=== PATIENT | male | born 1960 | race Caucasian/White ===

== ENCOUNTER 2021-06-03 11:02 | Outpatient (CLI) | payer MEDICARE, SELFPAY ==
[2021-06-03 12:17] LABS: SARS-CoV-2 Ag Positive (Negative)
== END 2021-06-03 11:03 | disposition home or self-care (01) ==
LOC: CHSLAB 11:08
PROVIDERS: PCP Physician Assistant; Visit Provider Physician Assistant
DX: U07.1 COVID-19 (principal); R68.89 Other general symptoms and signs
CPT/HCPCS: 87426; C9803

== ENCOUNTER 2021-06-12 07:19 | Inpatient (IN) | payer MEDICARE, SELFPAY ==
[2021-06-12] VITALS (16 sets, daily range): BP systolic 113–246; BP diastolic 76–220; PULSE 95–172; RESP 22–28; TEMP 36.3–37.5; O2SAT 91–99; BMI 33.1
--- NOTE | ~2021-06-12 | NM_ITS ---
EXAMINATION: NM pulmonary perfusion DATE: 06/13/2021 14:15 INDICATION: Dyspnea with elevated d-dimer. TECHNIQUE: 5.4 mCi Tc-99m MAA by intravenous route. Scintigraphic images of the chest were obtained. COMPARISON: Chest radiograph dated 06/13/2021 FINDINGS: There are a few small perfusion defects along the left lung base with corresponding airspace opacitie s on the prior radiographs. Single subtle moderate-sized perfusion defect at the superior segment of the right lower lobe best appreciated on the LPO projection without evident corresponding radiographi c opacity.. IMPRESSION: 1. Nondiagnostic (low or intermediate) probability for pulmonary embolism. Reviewed, dictated and finalized at location A. HARDENER
--- NOTE | ~2021-06-12 | XR_ITS ---
XR chest 1V portable 06/12/2021 07:46 Indication: Dyspnea. Covid pneumonia. Procedure: AP portable chest Comparison: No prior studies for comparison. Findings: Heart size upper normal. Patchy bilateral airspace disease, consistent with pneumonia. No s ignificant effusion. No acute osseous abnormality. 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 Impression: 1: Patchy bilateral airspace disease of the mid and lower lungs, consistent with pneumonia. Reviewed, dictated and finalized at location A. S PULLER Impression: 1: Patchy bilateral airspace disease of the mid and lower lungs, consistent wit h pneumonia.
--- NOTE | ~2021-06-12 | XR_ITS ---
EXAMINATION: XR chest 1V portable EXAM DATE: 06/13/2021 08:22 INDICATION: covid, difficulty breathing, shakes, cough . TECHNIQUE: Portable AP frontal chest x-ray was obtained. Comparison is made to prior examination from 06/12/2021. FINDINGS: There is cardiomegaly and pulmonary vascular congestion. Moderate amount of bilateral lower lung zone predominant airspace disease, edema and/or pneumonia. No pneumothorax. Possible small pleu ral effusions. There are bony degenerative changes. IMPRESSION: 1. Bibasilar pneumonia and/or edema with mild improvement on the right. Reviewed, dictated and finalized at location G. [facility]
--- NOTE | ~2021-06-12 | XR_ITS ---
XR chest 1V portable DATE: 06/14/2021 07:35 INDICATION: Shortness of breath. Covid. TECHNIQUE: Portable AP chest on 06/14/2021 at 0722 hours COMPARISON: Portable AP chest on 06/13/2021 at 0814 hours FINDINGS: There are persistent bilateral lower lung infiltrates and/or atelectasis; little interval c hange since 06/13/2021. The lungs appear hyperinflated suggesting possible COPD. No pleural effusion or pulmonary vascular congestion or pneumothorax is evident. Diffuse osteopenia. Osteoarthritic change at the glenohumeral joints. IMPRESSION: Persistent bilateral lower lung infiltrate and/or atelectasis, relatively stable since Reviewed, dictated and finalized at location A. ARCH TECH IMPRESSION: Persistent bilateral lower lung infiltrate and/or atelectasis, rela tively stable since 06/13/2021
--- NOTE | 2021-06-12 07:30 | ECG_ITS ---
Measurements Intervals [place] Rate: 153 P: NC: 0 QRS: -29 QRSD: 89 T: 91 QT: 303 QTc: 484 Interpretive Statements ATRIAL FIBRILLATION WITH RAPID VENTRICULAR RESPONSE VENTRICULAR PREMATURE COMPLEXES BASELINE WANDER- I, II, III, AVR, AVL, AVF, V1, V3, V5-V6 ABNORMAL ECG Electronically Signed On 06-12-2021 13:52:39 TOBACCO CURER by Thad Nieves D.O.
[2021-06-12] MEDS: dilTIAZem HCl INJ 25 MG/5 ML VIAL IV PUSH (07:32)
[2021-06-12] MEDS: dilTIAZem 100 MG/100 ML 100 MG/100 ML BAG 15 MG IV CONT (07:42)
--- NOTE | 2021-06-12 07:43 | ED.SOB ---
HPI - SOB/Dyspnea General Chief Complaint: Shortness of Breath/Dyspnea Stated Complaint: ambulance Time Seen by Provider: 06/12/21 07:23 Source: patient, EMS and RN notes reviewed Mode of arrival: ambulatory Limitations: clinical condition History of Present Illness MD elicited complaint: shortness of breath Pertinent past history: COPD and congestive heart failure Onset (ago): week(s) (1) Context: recent illness Timing: constant Severity: severe Exacerbating factors: lying flat, exertion and movement Relieving factors: nothing Known history of: COPD, congestive heart failure and other (told me COVID 1 month ago but actually only 9 days ago) Associated symptoms: fever and palpitations Treatment prior to arrival: oxygen Related Data Home Medications Medication Instructions Recorded Confirmed albuterol sulfate 2 puff INHALATION QID PRN 06/12/21 06/12/21 atorvastatin 40 mg PO DAILY 06/12/21 06/12/21 diltiazem HCl 180 mg PO DAILY 06/12/21 06/12/21 gabapentin 300 mg PO TID 06/12/21 06/12/21 losartan 50 mg PO DAILY 06/12/21 06/12/21 magnesium oxide 400 mg PO DAILY 06/12/21 06/12/21 metformin 500 mg PO BID 06/12/21 06/12/21 metoprolol tartrate 50 mg PO DAILY 06/12/21 06/12/21 nitroglycerin 0.4 mg SUBLINGUAL PRN PRN 06/12/21 06/12/21 oseltamivir 75 mg PO DAILY 06/12/21 06/12/21 potassium chloride 10 meq PO DAILY 06/12/21 06/12/21 rivaroxaban [Xarelto] 20 mg PO DAILY 06/12/21 06/12/21 tramadol 50 mg PO TID PRN 06/12/21 06/12/21 Allergies Allergy/AdvReac Type Severity Reaction Status Date / Time No Known Allergies Allergy Verified 06/12/21 07:53 Review of Systems Review of Systems: All systems reviewed & are unremarkable except as noted in HPI and below Constitutional: Constitutional: Reports fever(s) Cardiovascular: Cardiovascular: Reports as per HPI and Reports chest pain (gone now) Respiratory: Respiratory: Reports as per HPI Gastrointestinal: Gastrointestinal: Reports diarrhea and Reports vomiting PMFSH Past Medical History Medical History (Updated 06/12/21 @ 11:22 by Juan José Sal MD) Afib CHF (congestive heart failure) COPD (chronic obstructive pulmonary disease) History of COVID-19 History of obstruction of large intestine Hyperlipidemia Type 2 diabetes mellitus Surgical History Surgical History (Updated 06/12/21 @ 09:00 by Juan José Sal MD) History of colon surgery History of inguinal hernia repair Social History Social History (Updated 06/12/21 @ 07:54 by Juan José Sal MD) Smoking packs per day: 1 Smoking cigarettes per day: 20.0 Smoking status: Current every day smoker Tobacco type: cigarettes Exam Const: General: ill appearing acutely HENMT: Head: normal to inspection Ears: external ears normal General nose exam: Normal external nose present Face and sinus: normal facial exam Mouth: Yes moist mucous membranes Eyes: Conjunctivae: conjunctivae normal Pupils: Equal, round and reactive pupils present EOM: EOMs intact bilaterally Neck: Neck: normal visual inspection Resp: Effort & Inspection: labored and tachypneic Auscultation: rhonchi throughout Cardio: Rate: tachycardic Rhythm: abnormal rhythm irregularly irregular GI: GI Palp: Yes Soft to palpation and Yes Tenderness to palpation present (GI) Auscultation: normal bowel sounds Back/Spine/Pelvis: Cervical Spine: cervical ROM normal Thoracic/Lumbar Spine: thoraco-lumbar ROM normal Skin: General skin exam: normal color Rashes: no rashes Neuro: General: patient oriented x3, moves all extremities, no meningeal signs, no focal motor deficits and CN's II-XI intact bilaterally Speech: normal speech Extrem: General: normal to inspection and edema bilateral (1+) Psych: Mental Status: mental status grossly normal Affect: Anxious affect present Attitude: cooperative Thought content: Yes Normal thought content present Course Course Emergency Course: patient presented with atrial fibrillation with RVR to moises reyes
[2021-06-12 07:46] LABS: Basophils Absolute Auto 0.02 K/mm3 (0.00-0.10); Basophils Percent Auto 0.2 % (0.0-1.0); Eosinophils Absolute Auto 0.01 K/mm3 (0.02-0.50); Eosinophils Percent Auto 0.1 % (1.0-6.0); Hematocrit 38.9 % (40.0-54.0); Hemoglobin 13.9 g/dL (14.0-18.0); Immature Granulocyte Absolute 0.11 K/mm3 (0.00-0.00); Immature Granulocyte Percent A 0.8 % (0.0-0.0); Lymphocytes Percent Auto 4.6 % (18.0-42.0); Mean Corpuscular HGB Conc 35.7 g/dL (32.0-36.0); Mean Corpuscular Volume 89.6 fL (78.0-102.0); Mean Platelet Volume 11.8 fl (8.7-11.0); Monocytes Absolute Auto 1.11 K/mm3 (0.10-0.90); Monocytes Percent Auto 8.5 % (2.0-11.0); Neutrophils Absolute Auto 11.2 K/mm3 (1.7-7.2); Neutrophils Percent Auto 85.8 % (50.0-70.0); Nucleated Red Blood Cells Absolute Auto 0.02 K/mm3 (0.00-0.00); Nucleated Red Blood Cells Perc 0.2 % (0-0.0); Platelet Count Result 246 K/mm3 (150-420); Red Blood Count 4.34 M/mm3 (4.70-6.10); Red Cell Distribution Width 12.7 % (11.6-14.4)
[2021-06-12] MEDS: dilTIAZem HCl INJ 25 MG/5 ML VIAL 30 MG IV PUSH (07:54)
[2021-06-12 08:02] LABS: INR 1.1
[2021-06-12 08:05] LABS: D Dimer 2.82 mg/L (0.19-0.50)
[2021-06-12 08:07] LABS: Alanine Aminotransferase 38 U/L (16-63); Albumin Level 2.6 g/dL (3.4-5.0); Alkaline Phosphatase 95 U/L (46-116); Anion Gap 16 mmol/L (8-16); Aspartate Amino Transferase 59 U/L (15-37); Blood Urea Nitrogen 39 mg/dL (7-18); Calcium 8.9 mg/dL (8.5-10.1); Carbon Dioxide 23 mmol/L (21-32); Chloride 92 mmol/L (98-108); Estimated CRCL calculation 39 ml/min; Estimated Glomerular Filt Rate 25; Glucose 385 mg/dL (70-99); Magnesium 1.8 mg/dL (1.8-2.4); NT Pro B Type Natriuretic Pept 413 pg/mL (0-125); Osmolality Calculated 297 mOsm/kg (285-295); Potassium 3.1 mmol/L (3.5-5.1); Sodium 131 mmol/L (136-145)
[2021-06-12 08:08] LABS: Troponin I 74.7 ng/L (0.00-60.4)
[2021-06-12] MEDS: FUROSEMIDE INJ 40 MG/4 ML VIAL 60 MG IV PUSH (08:12)
[2021-06-12] MEDS: hydrALAZINE HCL 20 MG/ML VIAL IV PUSH (08:18)
--- NOTE | 2021-06-12 08:28 | PC.NURSE ---
Pt turned down to 10L non-rebreather per Dr. Sal.
[2021-06-12 08:30] LABS: SARS-CoV-2 RNA PCR Positive (Negative)
--- NOTE | 2021-06-12 08:41 | PC.NURSE ---
Pt noted to have de-sated into the mid 80's. Pt turned up to 15L by non-rebreather and saturation improved to 94%.
[2021-06-12] MEDS: KCL 20 MEQ/SW 100 ML 100 ML 50 MEQ IVPB (08:53)
[2021-06-12] MEDS: SODIUM CHLORIDE 0.9% IV 1,000 ML 150 ML IV CONT (08:53)
--- NOTE | 2021-06-12 09:15 | PC.NURSE ---
Lab at bedside drawing ABG.
[2021-06-12 09:21] LABS: Base Excess ABG -0.1 mmol/L (0-2); HCO3 ABG 22.7 mmol/L (23-29); Oxygen Content ABG 19.2 %vol (16.0-22.0); Oxygen Saturation ABG 97.9 % (95-97); Oxyhemoglobin 97.5 % (94-100); PCO2 ABG 31.8 mmHg (35-45); PO2 ABG 109.1 mmHg (80-90); Total Hemoglobin 13.9 g/dL (12.0-18.0); pH ABG 7.47 (7.35-7.45)
[2021-06-12 09:23] LABS: Device NON-REBREATHER MASK; Modified Allen's Test Pass; Site Drawn RIGHT RADIAL
[2021-06-12 09:30] LABS: Add Urine Microscopic? YES; Appearance Urine Clear (Clear); Bilirubin Urine Negative (Negative); Blood Urine 2+ (Negative); Color Urine Yellow (Yellow); Glucose Urine UA 1+ (Negative); Ketones Urine Negative (Negative); Leukocyte Esterase Ur Negative LEU/UL (Negative); Nitrate Urine Negative (Negative); Protein Urine 2+ (Negative); Specific Grav Ur >= 1.030 (1.010-1.020); Urobilinogen Urine 0.2 mg/dL (0.2-1.0); pH Urine 5.5 (5.0-8.0)
[2021-06-12 09:37] LABS: Amphetamine Screen Urine Negative (Negative); Barbiturate Screen Urine Negative (Negative); Benzodiazepines Screen Urine Negative (Negative); Cannabinoid Screen Urine Negative (Negative); Cocaine Screen Urine Negative (Negative); Methadone Screen Urine Negative (Negative); Opiate Screen Urine Negative (Negative); Phencyclidine Screen Urine Negative (Negative)
[2021-06-12 09:45] LABS: Bacteria Urine 2+ /hpf; RBC Urine 21-50 /hpf (0-2); Squamous Epithelial Cell Urine None seen /hpf (Few); WBC Urine 0-3 /hpf (0-3)
--- NOTE | 2021-06-12 11:33 | PC.NURSE ---
Phone report given to JOHN Gilbert
--- NOTE | 2021-06-12 11:34 | PC.NURSE ---
Admitting notified of admission.
--- NOTE | 2021-06-12 11:43 | PC.NURSE ---
Face sheet faxed to [facility].
--- NOTE | 2021-06-12 12:05 | ADMGEN ---
This patient, Stoney Mayorga, was admitted to 2nd Floor Room 211-1 for COVID pneumonia. Patient/family oriented to hospital policies and general routines including ID bracelet, bed and alarms, visiting hours, pain management, procedures, bathroom and other care routines, personal items, smoking policy, room service/diet, and visiting hours. Information on how to activate the Rapid Response Team has been discussed. Patient/Family are encouraged to report perceived risks to care and to ask questions if they do not understand what they are told or what they should do.
[2021-06-12] MEDS: dilTIAZem 100 MG/100 ML 100 MG/100 ML BAG IV CONT (14:10)
[2021-06-12] MEDS: dilTIAZem HCL CD 180 MG CAP.ER.24H PO (16:24)
[2021-06-12] MEDS: BENZONATATE 100 MG CAPSULE 200 MG PO (16:24)
[2021-06-12] MEDS: RIVAROXABAN 10 MG TABLET 20 MG PO (16:24)
[2021-06-12] MEDS: HYDROcodone/acetaminophen (*CRX) 7.5-325 MG TABLET 1 TAB PO (16:24)
[2021-06-12] MEDS: BARICITINIB 2 MG TABLET 1 MG PO (16:24)
[2021-06-12] MEDS: LORATADINE 10 MG TABLET PO (16:24)
[2021-06-12] MEDS: GABAPENTIN 300 MG CAPSULE PO (16:25)
[2021-06-12] MEDS: BUDESONIDE/FORMOTEROL (*SP) 160-4.5 MCG 6 GM INH 2 PUFF INHALATION (18:03)
[2021-06-12] MEDS: DEXAMETHASONE SOD PHOS INJ 4 MG/ML VIAL IV PUSH (18:03)
[2021-06-12 20:24] LABS: NT Pro B Type Natriuretic Pept 493 pg/mL (0-125)
[2021-06-12] MEDS: guaiFENesin 12 HR 600 MG TABCR 1200 MG PO (21:37)
[2021-06-12] MEDS: SODIUM CHLORIDE 0.9% IV 1,000 ML 75 ML IV CONT (23:55)
[2021-06-13] VITALS (12 sets, daily range): BP systolic 122–175; BP diastolic 70–90; PULSE 84–123; RESP 20–22; TEMP 36–37.7; O2SAT 88–98
[2021-06-13] MEDS: DEXAMETHASONE SOD PHOS INJ 4 MG/ML VIAL IV PUSH ×4 (00:50→22:39)
[2021-06-13] MEDS: BUDESONIDE/FORMOTEROL (*SP) 160-4.5 MCG 6 GM INH 2 PUFF INHALATION ×2 (06:16→19:15)
[2021-06-13 06:30] LABS: Basophils Absolute Auto 0.01 K/mm3 (0.00-0.10); Basophils Percent Auto 0.1 % (0.0-1.0); Hematocrit 35.9 % (40.0-54.0); Hemoglobin 12.2 g/dL (14.0-18.0); Immature Granulocyte Absolute 0.08 K/mm3 (0.00-0.00); Immature Granulocyte Percent A 0.8 % (0.0-0.0); Lymphocytes Percent Auto 6.6 % (18.0-42.0); Mean Corpuscular Hemoglobin 31.9 pg (27.0-31.0); Mean Platelet Volume 11.6 fl (8.7-11.0); Monocytes Absolute Auto 0.45 K/mm3 (0.10-0.90); Monocytes Percent Auto 4.2 % (2.0-11.0); Neutrophils Absolute Auto 9.4 K/mm3 (1.7-7.2); Neutrophils Percent Auto 88.3 % (50.0-70.0); Platelet Count Result 275 K/mm3 (150-420); Red Blood Count 3.82 M/mm3 (4.70-6.10); Red Cell Distribution Width 12.8 % (11.6-14.4); White Blood Count 10.7 K/mm3 (4.8-10.8)
[2021-06-13 06:43] LABS: Base Excess ABG -0.3 mmol/L (0-2); HCO3 ABG 23.4 mmol/L (23-29); Oxygen Content ABG 13.6 %vol (16.0-22.0); Oxyhemoglobin 91.6 % (94-100); PCO2 ABG 34.6 mmHg (35-45); PO2 ABG 63.2 mmHg (80-90); Total Hemoglobin 10.5 g/dL (12.0-18.0); pH ABG 7.45 (7.35-7.45)
[2021-06-13 06:54] LABS: Alanine Aminotransferase 36 U/L (16-63); Estimated CRCL calculation 43 ml/min; Estimated Glomerular Filt Rate 29
[2021-06-13 06:56] LABS: INR 1.2; Prothrombin Time 12.8 Seconds (9.50-12.10)
[2021-06-13 07:03] LABS: Device NASAL CANNULA; Modified Allen's Test Pass; Site Drawn RIGHT RADIAL
[2021-06-13 07:45] LABS: NT Pro B Type Natriuretic Pept 687 pg/mL (0-125)
[2021-06-13 07:49] LABS: Aspartate Amino Transferase 44 U/L (15-37)
[2021-06-13] MEDS: POTASSIUM CHLORIDE 10 MEQ TABLET PO (09:00)
[2021-06-13 09:46] LABS: Alanine Aminotransferase 37 U/L (16-63); Albumin Level 2.3 g/dL (3.4-5.0); Alkaline Phosphatase 85 U/L (46-116); Anion Gap 15 mmol/L (8-16); Aspartate Amino Transferase 44 U/L (15-37); Bilirubin,Total 0.5 mg/dL (0.00-1.00); Blood Urea Nitrogen 53 mg/dL (7-18); Calcium 8.5 mg/dL (8.5-10.1); Carbon Dioxide 23 mmol/L (21-32); Chloride 96 mmol/L (98-108); Estimated CRCL calculation 43 ml/min; Estimated Glomerular Filt Rate 30; Osmolality Calculated 312 mOsm/kg (285-295); Potassium 3.7 mmol/L (3.5-5.1); Sodium 134 mmol/L (136-145); Total Protein 6.3 g/dL (6.4-8.2)
[2021-06-13 09:51] LABS: Glucose 466 mg/dL (70-99)
[2021-06-13 09:52] LABS: Troponin I 68.5 ng/L (0.00-60.4)
[2021-06-13] MEDS: dilTIAZem HCl INJ 25 MG/5 ML VIAL IV PUSH (10:32)
[2021-06-13] MEDS: METOPROLOL TARTRATE 50 MG TAB PO (10:34)
[2021-06-13] MEDS: LORATADINE 10 MG TABLET PO (10:34)
[2021-06-13] MEDS: BENZONATATE 100 MG CAPSULE 200 MG PO ×3 (10:35→17:46)
[2021-06-13] MEDS: guaiFENesin 12 HR 600 MG TABCR 1200 MG PO ×2 (10:35→21:54)
[2021-06-13] MEDS: ATORVASTATIN 40 MG TABLET PO (10:35)
[2021-06-13] MEDS: dilTIAZem HCL CD 180 MG CAP.ER.24H PO (10:36)
[2021-06-13] MEDS: GABAPENTIN 300 MG CAPSULE PO ×3 (10:36→17:11)
[2021-06-13] MEDS: MAGNESIUM OXIDE 400 MG TABLET PO (10:36)
[2021-06-13] MEDS: LOSARTAN POTASSIUM 50 MG TABLET PO (10:37)
[2021-06-13] MEDS: BARICITINIB 2 MG TABLET PO (11:00)
[2021-06-13] MEDS: dilTIAZem 100 MG/100 ML 100 MG/100 ML BAG 15 MG IV CONT (14:35)
--- NOTE | 2021-06-13 16:06 | PM.IMHP ---
H&P: HPI History of Present Illness Date/Time: 06/13/21 16:06 this is a 61-year-old male that presented to emergency department with complaints of palpitations and shortness of breath. Patient has a past medical history of A. fib, heart failure, COPD, COVID, hyperlipidemia and type 2 diabetes. According to patient a couple days ago he started to experience shortness of breath he was diagnosed with COVID 9 days ago. He did not do anything to relieve the symptoms at home. Patient notified 97.3 heart rate has been between 80 and 123, 145/70, respiratory rate 22 patient currently on 5 L nasal cannula satting 94, WBC 13.0, hemoglobin 13.9, hematocrit 38.9, platelets 246, D-dimer 2.82 ABG pH 7.47, CO2 31.8. O2 109.1 bicarb 22.7, sodium 131, potassium 3.1, creatinine 2.61, BUN 39 glucose 385, magnesium 1.8 AST 59 ALT 38 alkaline phosphate 95 troponin 74.7, BNP 413, COVID-positive chest x-ray indicates pneumonia versus edema EKG A. fib with RVR with heart rate of 153. While in the ED patient received Cardizem and hydralazine 10 mg for her high blood pressure. Patient is being admitted for A. fib with RVR, covid, elevated troponin and jordin.. Chief Complaint: Shortness of breath and palpitation Review of Systems Review of Systems: A 14 organ system Review of Systems was performed and pertinent positives included in the HPI, otherwise remaining ROS is negative. [facility] Past Medical History Medical History (Updated 06/13/21 @ 16:31 by NICKI Brewer) Afib CHF (congestive heart failure) COPD (chronic obstructive pulmonary disease) History of COVID-19 History of obstruction of large intestine Hyperlipidemia Type 2 diabetes mellitus Surgical History Surgical History (Updated 06/12/21 @ 09:00 by Juan José Sal MD) History of colon surgery History of inguinal hernia repair Social History Social History (Updated 06/12/21 @ 07:54 by Juan José Sal MD) Smoking packs per day: 1 Smoking cigarettes per day: 20.0 Smoking status: Current every day smoker Tobacco type: cigarettes Alcohol intake: never Substance use: never Substance use type: does not use Spiritual care concerns: No Meds Home Medications and Allergies Home Medications Medication Instructions Recorded Confirmed Type albuterol sulfate 2 puff INHALATION QID PRN 06/12/21 06/12/21 History atorvastatin 40 mg PO DAILY 06/12/21 06/12/21 History diltiazem HCl 180 mg PO DAILY 06/12/21 06/12/21 History gabapentin 300 mg PO TID 06/12/21 06/12/21 History losartan 50 mg PO DAILY 06/12/21 06/12/21 History magnesium oxide 400 mg PO DAILY 06/12/21 06/12/21 History metformin 500 mg PO BID 06/12/21 06/12/21 History metoprolol tartrate 50 mg PO DAILY 06/12/21 06/12/21 History nitroglycerin 0.4 mg SUBLINGUAL PRN PRN 06/12/21 06/12/21 History oseltamivir 75 mg PO DAILY 06/12/21 06/12/21 History potassium chloride 10 meq PO DAILY 06/12/21 06/12/21 History rivaroxaban [Xarelto] 20 mg PO DAILY 06/12/21 06/12/21 History tramadol 50 mg PO TID PRN 06/12/21 06/12/21 History Allergies Allergy/AdvReac Type Severity Reaction Status Date / Time No Known Allergies Allergy Verified 06/12/21 07:53 Vital Signs Vital Signs - 24 hr 06/12/21 20:00 06/13/21 00:00 06/13/21 01:10 Temperature 97.3 F L Pulse Rate 100 100 84 Respiratory Rate 22 H 22 H Blood Pressure 122/74 132/77 Pulse Oximetry 94 94 06/13/21 04:00 06/13/21 10:34 06/13/21 14:35 Temperature Pulse Rate 84 123 H 98 Respiratory Rate Blood Pressure 145/70 H Pulse Oximetry Exam Narrative: GENERAL: M, in no apparent distress. HEAD: normocephalic, atraumatic. EYES: PERRL. Sclera clear/white. Vision is grossly intact. EARS: External ears normal, auditory canals clear and without drainage, TMs normal without perforation. Hearing grossly intact. NOSE: External nose normal with no obvious nasal discharge, nares without redness, no rhinorrhea. THROAT: Mucous membranes moist, posterior ph
[2021-06-13] MEDS: RIVAROXABAN 10 MG TABLET 20 MG PO (17:11)
[2021-06-13] MEDS: MAGNESIUM SULF 2 GM/WATER 50ML 2 GM/50 ML BAG IVPB (18:10)
[2021-06-13 19:44] LABS: Troponin I 99.4 ng/L (0.00-60.4)
--- NOTE | 2021-06-13 19:47 | PC.NURSE ---
notified of current Troponin level of 99.4.No new orders at this time.
[2021-06-13] MEDS: traZODone HCL 50 MG TABLET PO (21:54)
[2021-06-13 22:56] LABS: Glucose Point of Care 376 mg/dl (65-105)
[2021-06-14] VITALS (14 sets, daily range): BP systolic 127–168; BP diastolic 65–94; PULSE 83–128; RESP 22–24; TEMP 36.6; O2SAT 90–99
[2021-06-14] MEDS: DEXAMETHASONE SOD PHOS INJ 4 MG/ML VIAL IV PUSH ×3 (00:13→11:15)
[2021-06-14] MEDS: dilTIAZem 100 MG/100 ML 100 MG/100 ML BAG 15 MG IV CONT ×2 (01:17→08:56)
--- NOTE | 2021-06-14 01:17 | PC.NURSE ---
Spoke with Dr. Steward to confirm parameters for cardizem gtt. Told to continue drio at current rate at this time.
[2021-06-14] MEDS: BUDESONIDE/FORMOTEROL (*SP) 160-4.5 MCG 6 GM INH 2 PUFF INHALATION ×2 (05:47→17:38)
[2021-06-14 06:04] LABS: Basophils Absolute Auto 0.03 K/mm3 (0.00-0.10); Basophils Percent Auto 0.2 % (0.0-1.0); Hematocrit 37.4 % (40.0-54.0); Hemoglobin 12.5 g/dL (14.0-18.0); Immature Granulocyte Percent A 1.6 % (0.0-0.0); Lymphocytes Absolute Auto 0.52 K/mm3 (1.10-4.50); Lymphocytes Percent Auto 2.8 % (18.0-42.0); Mean Corpuscular HGB Conc 33.4 g/dL (32.0-36.0); Mean Corpuscular Hemoglobin 30.9 pg (27.0-31.0); Mean Corpuscular Volume 92.6 fL (78.0-102.0); Mean Platelet Volume 11.2 fl (8.7-11.0); Monocytes Absolute Auto 0.89 K/mm3 (0.10-0.90); Monocytes Percent Auto 4.8 % (2.0-11.0); Neutrophils Absolute Auto 16.7 K/mm3 (1.7-7.2); Neutrophils Percent Auto 90.6 % (50.0-70.0); Platelet Count Result 395 K/mm3 (150-420); Red Blood Count 4.04 M/mm3 (4.70-6.10); Red Cell Distribution Width 12.8 % (11.6-14.4); White Blood Count 18.4 K/mm3 (4.8-10.8)
[2021-06-14 06:19] LABS: INR 1.2; Prothrombin Time 12.5 Seconds (9.50-12.10)
[2021-06-14 06:22] LABS: Base Excess ABG -0.8 mmol/L (0-2); HCO3 ABG 21.2 mmol/L (23-29); Oxygen Content ABG 17.8 %vol (16.0-22.0); Oxygen Saturation ABG 98.6 % (95-97); Oxyhemoglobin 96.7 % (94-100); PCO2 ABG 27.8 mmHg (35-45); PO2 ABG 162.6 mmHg (80-90); Total Hemoglobin 12.9 g/dL (12.0-18.0)
[2021-06-14 06:33] LABS: Device NASAL CANNULA; Modified Allen's Test Pass; Site Drawn RIGHT RADIAL
[2021-06-14 06:41] LABS: Alanine Aminotransferase 45 U/L (16-63); Albumin Level 2.2 g/dL (3.4-5.0); Alkaline Phosphatase 92 U/L (46-116); Anion Gap 17 mmol/L (8-16); Aspartate Amino Transferase 57 U/L (15-37); Bilirubin,Total 0.6 mg/dL (0.00-1.00); Blood Urea Nitrogen 49 mg/dL (7-18); Calcium 8.9 mg/dL (8.5-10.1); Carbon Dioxide 22 mmol/L (21-32); Chloride 94 mmol/L (98-108); Estimated CRCL calculation 53 ml/min; Estimated Glomerular Filt Rate 38; Magnesium 2.6 mg/dL (1.8-2.4); NT Pro B Type Natriuretic Pept 1666 pg/mL (0-125); Osmolality Calculated 308 mOsm/kg (285-295); Potassium 3.5 mmol/L (3.5-5.1); Sodium 133 mmol/L (136-145); Total Protein 7.4 g/dL (6.4-8.2)
[2021-06-14 06:42] LABS: Glucose 436 mg/dL (70-99)
[2021-06-14 08:16] LABS: Glucose Point of Care 420 mg/dl (65-105)
[2021-06-14] MEDS: BENZONATATE 100 MG CAPSULE 200 MG PO ×3 (08:40→17:37)
[2021-06-14] MEDS: GABAPENTIN 300 MG CAPSULE PO ×3 (08:41→17:38)
[2021-06-14] MEDS: ATORVASTATIN 40 MG TABLET PO (08:41)
[2021-06-14] MEDS: LOSARTAN POTASSIUM 50 MG TABLET PO (08:41)
[2021-06-14] MEDS: POTASSIUM CHLORIDE 10 MEQ TABLET PO (08:41)
[2021-06-14] MEDS: guaiFENesin 12 HR 600 MG TABCR 1200 MG PO ×2 (08:41→20:55)
[2021-06-14] MEDS: MAGNESIUM OXIDE 400 MG TABLET PO (08:41)
[2021-06-14] MEDS: LORATADINE 10 MG TABLET PO (08:41)
[2021-06-14] MEDS: SACCHAROMYCES BOULARDII 250 MG CAPSULE PO ×3 (08:42→17:50)
[2021-06-14] MEDS: METOPROLOL TARTRATE 50 MG TAB PO (08:42)
[2021-06-14] MEDS: SODIUM CHLORIDE 0.9% IV 1,000 ML 75 ML IV CONT (08:51)
[2021-06-14] MEDS: POTASSIUM CHLORIDE 20 MEQ TABLET PO (10:34)
[2021-06-14 11:44] LABS: Glucose Point of Care 410 mg/dl (65-105)
[2021-06-14] MEDS: BARICITINIB 2 MG TABLET PO (12:41)
--- NOTE | 2021-06-14 13:14 | PC.NURSE ---
0830 patient is alert and at times confused. at times will not leave o2 on. incont of liquid brown stool while in chair. l leg and skin is cool. l leg is has mottled appearance from knee down. claims his legs always does this and nothing new. looks less mottled once in bed. takes max assist of 1 and walker to transfer. karolyn nps aware of accuchecks being over 400 both breakfast and lunch. verbal order given for lunch and 15units humalog and ivf stopped at this time per karolyn order. have been decreasing cardizem ddrip. @ 1030 drip down to 7.5mg/hr. bp144/64. hr 88. @12n cardizem drip5m/hr bp 128/65. hr 92. 1330 remains @ 5mg/hr cardizem drip. hr 86. bp 134/74. c/o that food is to hard to eat due to teeth. karolyn aware of need for different.
[2021-06-14 13:34] LABS: Base Excess ABG 1.3 mmol/L (0-2); HCO3 ABG 23.7 mmol/L (23-29); Oxygen Content ABG 16.8 %vol (16.0-22.0); Oxygen Saturation ABG 91.5 % (95-97); PCO2 ABG 30.9 mmHg (35-45); PO2 ABG 60.6 mmHg (80-90); Total Hemoglobin 13.1 g/dL (12.0-18.0)
[2021-06-14 13:37] LABS: Device NASAL CANNULA; Modified Allen's Test Pass; Site Drawn RIGHT RADIAL
[2021-06-14] MEDS: FUROSEMIDE INJ 20 MG/2 ML VIAL IV PUSH (14:45)
--- NOTE | 2021-06-14 16:01 | P.PNIM_ITS ---
Progress Note: A&P Assessment and Plan (1) Atrial fibrillation with RVR: Code(s): I48.91 - Unspecified atrial fibrillation <PHILIP Johns - Last Filed: 06/14/21 16:33> Status: Acute <PHILIP Johns - Last Filed: 06/14/21 16:33> Assessment and Plan: * EKG A. fib with RVR heart rate of 153 * Continue Cardizem until heart rate is below 100 * Increased cardizem from 120mg to 240 mg daily * Continue Xarelto * Continue Cardizem and metoprolol 50 mg daily * Continue telemetry * Waiting for transfer to [facility] 06/14/2021 Transitioning to PO Cardizem, increased dose by 120 mg for a total PO dose of 360 mg, will revisit in the AM, as of 1617 hours HR controlled at 80 +/- but is still on 5 mg/hr Cardizem drip. <PHILIP Johns - Last Filed: 06/14/21 16:33> (2) Pneumonia due to COVID-19 virus: Code(s): U07.1 - COVID-19; J12.82 - Pneumonia due to coronavirus disease 2019 <PHILIP Johns - Last Filed: 06/14/21 16:33> Status: Acute <PHILIP Johns - Last Filed: 06/14/21 16:33> Assessment and Plan: * COVID-positive, patient tested positive eight days ago * azithromycin and Rocephin day 2/ * Continue olumiant remdesivir and dexamethasone * Chest x-ray indicates pneumonia or edema * Patient on 5 L nasal cannula 06/14/2021 Stable lung infiltrate and/or atelectasis per rad report. continue with regimen at this time. <PHILIP Johns - Last Filed: 06/14/21 16:33> (3) Acute hyponatremia: Code(s): E87.1 - Hypo-osmolality and hyponatremia <PHILIP Johns - Last Filed: 06/14/21 16:33> Status: Acute <PHILIP Johns - Last Filed: 06/14/21 16:33> Assessment and Plan: * Improving * Na 131>134 * CMP in a.m. 06/14/2021 Na 133 continue to monitor <Elvin Whelan APN-C - Last Filed: 06/14/21 16:33> (4) Acute hypokalemia: Code(s): E87.6 - Hypokalemia <Elvin Whelan APN-C - Last Filed: 06/14/21 16:33> Status: Acute <Elvin Whelan APN-C - Last Filed: 06/14/21 16:33> Assessment and Plan: * Resolved * Potassium3.7 >3.1 * Will continue supplement 06/14/2021 WNL today <Elvin Whelan APN-C - Last Filed: 06/14/21 16:33> (5) Elevated troponin: Code(s): R77.8 - Other specified abnormalities of plasma proteins <Elvin Whelan APN-C - Last Filed: 06/14/21 16:33> Status: Acute <Elvin Whelan APN-C - Last Filed: 06/14/21 16:33> Assessment and Plan: * Elevated oohaansf44.5 * Possibly secondary to A. fib with RVR versus COVID * Will trend * Continue telemetry 06/14/2021 Troponin 74.7, 68.5, 99.4, will obtain new in AM. No chest pain except with coughing and reproducible with sternal pressure applied, A fib is now rate controlled much better, rate was as high as 160s for short bursts. <Elvin Whelan APN-C - Last Filed: 06/14/21 16:33> (6) Elevated d-dimer: Code(s): R79.89 - Other specified abnormal findings of blood chemistry <Elvin Whelan APN-C - Last Filed: 06/14/21 16:33> Status: Acute <Elvin Whelan APN-C - Last Filed: 06/14/21 16:33> Assessment and Plan: * D-dimer2.82 * VQ scan pending 06/14/2021 nondiagnostic (low or intermediate) probability for pulmonary embolism per rad report. Continue Xarelto <PHILIP Johns - Last Filed: 06/14/21 16:33> (7) Acute kidney injury: Code(s): N17.9 - Acute kidney failure, unspecified <PHILIP Johns - Last Filed: 06/14/21 16:33> Status:
--- NOTE | 2021-06-14 16:01 | PM.IMPN ---
Progress Note: A&P Assessment and Plan (1) Atrial fibrillation with RVR: Code(s): I48.91 - Unspecified atrial fibrillation <PHILIP Johns - Last Filed: 06/14/21 16:33> Status: Acute <PHILIP Johns - Last Filed: 06/14/21 16:33> Assessment and Plan: EKG A. fib with RVR heart rate of 153 Continue Cardizem until heart rate is below 100 Increased cardizem from 120mg to 240 mg daily Continue Xarelto Continue Cardizem and metoprolol 50 mg daily Continue telemetry Waiting for transfer to [facility] 06/14/2021 Transitioning to PO Cardizem, increased dose by 120 mg for a total PO dose of 360 mg, will revisit in the AM, as of 1617 hours HR controlled at 80 +/- but is still on 5 mg/hr Cardizem drip. <PHILIP Johns - Last Filed: 06/14/21 16:33> (2) Pneumonia due to COVID-19 virus: Code(s): U07.1 - COVID-19; J12.82 - Pneumonia due to coronavirus disease 2019 <PHILIP Johns - Last Filed: 06/14/21 16:33> Status: Acute <PHILIP Johns - Last Filed: 06/14/21 16:33> Assessment and Plan: COVID-positive, patient tested positive eight days ago azithromycin and Rocephin day 2/7 Continue olumiant remdesivir and dexamethasone Chest x-ray indicates pneumonia or edema Patient on 5 L nasal cannula 06/14/2021 Stable lung infiltrate and/or atelectasis per rad report. continue with regimen at this time. <PHILIP Johns - Last Filed: 06/14/21 16:33> (3) Acute hyponatremia: Code(s): E87.1 - Hypo-osmolality and hyponatremia <PHILIP Johns - Last Filed: 06/14/21 16:33> Status: Acute <PHILIP Johns - Last Filed: 06/14/21 16:33> Assessment and Plan: Improving Na 131>134 CMP in a.m. 06/14/2021 Na 133 continue to monitor <KRISTEL JohnsN-C - Last Filed: 06/14/21 16:33> (4) Acute hypokalemia: Code(s): E87.6 - Hypokalemia <KRISTEL JohnsN-C - Last Filed: 06/14/21 16:33> Status: Acute <KRISTEL JohnsN-C - Last Filed: 06/14/21 16:33> Assessment and Plan: Resolved Potassium3.7 >3.1 Will continue supplement 06/14/2021 WNL today <Elvin Whelan APN-C - Last Filed: 06/14/21 16:33> (5) Elevated troponin: Code(s): R77.8 - Other specified abnormalities of plasma proteins <Elvin Whelan BUS ANALYST-C - Last Filed: 06/14/21 16:33> Status: Acute <KRISTEL JohnsN-C - Last Filed: 06/14/21 16:33> Assessment and Plan: Elevated vywjrwvj87.5 Possibly secondary to A. fib with RVR versus COVID Will trend Continue telemetry 06/14/2021 Troponin 74.7, 68.5, 99.4, will obtain new in AM. No chest pain except with coughing and reproducible with sternal pressure applied, A fib is now rate controlled much better, rate was as high as 160s for short bursts. <Elvin Whelan BUS ANALYST-C - Last Filed: 06/14/21 16:33> (6) Elevated d-dimer: Code(s): R79.89 - Other specified abnormal findings of blood chemistry <Elvin Whelan BUS ANALYST-C - Last Filed: 06/14/21 16:33> Status: Acute <Elvin Whelan APN-C - Last Filed: 06/14/21 16:33> Assessment and Plan: D-dimer2.82 VQ scan pending 06/14/2021 nondiagnostic (low or intermediate) probability for pulmonary embolism per rad report. Continue Xarelto <Elvin Whelan BUS ANALYST-C - Last Filed: 06/14/21 16:33> (7) Acute kidney injury: Code(s): N17.9 - Acute kidney failure, unspecified <PHILIP Johns - Last Filed: 06/14/21 16:33> Status: Acute <PHILIP Johns - Last Filed: 06/14/21 16:33> Assessment and Plan: BUN/CR 39/2.27>53/2.24 unsure of patient's baseline. Will probably need to call primary care physician to get baseline Avoid nephrotoxic agent Renal dose all medication CMP in a.m. Cautiously IV hydrate 06/14/2021 Improving renal function, continue
[2021-06-14] MEDS: RIVAROXABAN 10 MG TABLET 20 MG PO (17:38)
--- NOTE | 2021-06-14 19:51 | PC.NURSE ---
1844 incont of lg loose brown stool. did eat 50% supper. hr remains below 100 (92). remains a fib on tele. bp 128/74. Cardizem gtt is stopped at this time.
[2021-06-14 22:01] LABS: Glucose Point of Care 349 mg/dl (65-105)
[2021-06-15] VITALS (13 sets, daily range): BP systolic 128–167; BP diastolic 50–99; PULSE 84–165; RESP 16–26; TEMP 36.4–37.1; O2SAT 92–100
[2021-06-15] MEDS: HYDROcodone/acetaminophen (*CRX) 7.5-325 MG TABLET 1 TAB PO
[2021-06-15 01:48] LABS: Glucose Point of Care 307 mg/dl (65-105)
--- NOTE | 2021-06-15 04:25 | PC.NURSE ---
The warehouse team member at [facility] called and asked if pt still needed to be transferred. Information given and [place] said they would keep patient on the transfer list.
[2021-06-15 05:28] LABS: Basophils Absolute Auto 0.03 K/mm3 (0.00-0.10); Basophils Percent Auto 0.2 % (0.0-1.0); Hematocrit 35.1 % (40.0-54.0); Hemoglobin 11.8 g/dL (14.0-18.0); Immature Granulocyte Absolute 0.39 K/mm3 (0.00-0.00); Immature Granulocyte Percent A 2.4 % (0.0-0.0); Lymphocytes Absolute Auto 0.51 K/mm3 (1.10-4.50); Lymphocytes Percent Auto 3.1 % (18.0-42.0); Mean Corpuscular HGB Conc 33.6 g/dL (32.0-36.0); Mean Corpuscular Hemoglobin 31.9 pg (27.0-31.0); Mean Corpuscular Volume 94.9 fL (78.0-102.0); Mean Platelet Volume 10.8 fl (8.7-11.0); Monocytes Absolute Auto 1.02 K/mm3 (0.10-0.90); Monocytes Percent Auto 6.2 % (2.0-11.0); Neutrophils Absolute Auto 14.5 K/mm3 (1.7-7.2); Neutrophils Percent Auto 88.1 % (50.0-70.0); Platelet Count Result 357 K/mm3 (150-420); Red Cell Distribution Width 13.1 % (11.6-14.4); White Blood Count 16.5 K/mm3 (4.8-10.8)
[2021-06-15 05:40] LABS: INR 1.2; Prothrombin Time 12.9 Seconds (9.50-12.10)
[2021-06-15 05:48] LABS: Alanine Aminotransferase 47 U/L (16-63); Albumin Level 2.1 g/dL (3.4-5.0); Alkaline Phosphatase 82 U/L (46-116); Anion Gap 11 mmol/L (8-16); Aspartate Amino Transferase 48 U/L (15-37); Bilirubin,Total 0.5 mg/dL (0.00-1.00); Blood Urea Nitrogen 41 mg/dL (7-18); Carbon Dioxide 27 mmol/L (21-32); Chloride 96 mmol/L (98-108); Estimated CRCL calculation 59 ml/min; Estimated Glomerular Filt Rate 43; Glucose 399 mg/dL (70-99); Osmolality Calculated 305 mOsm/kg (285-295); Sodium 134 mmol/L (136-145); Troponin I 50.8 ng/L (0.00-60.4)
[2021-06-15] MEDS: BUDESONIDE/FORMOTEROL (*SP) 160-4.5 MCG 6 GM INH 2 PUFF INHALATION ×2 (05:53→18:42)
--- NOTE | 2021-06-15 08:00 | ECHO_ITS ---
Patient Info Name: Stoney Mayorga Age: 61 years : 1960 Gender: Male Ht: 71 in Wt: 240 lbs BSA: 2.37 m2 HR: 118 bpm BP: 143 / 73 mmHg Technical Quality: Good Exam Date: 06/15/2021 9:47 AM Exam Location: [facility] [place] Patient Status: Inpatient Admit Date: 06/12/2021 Staff Ordering Physician: Lazara Tyson-Rico Curing Oven Attendant: Jeramie Feng RDCS, RT Attending Provider: Juan José Sal MD Referring Physician: Jah JEROME; Exam Type: CA echo dop color flow w con Study Info Indications I50.9 - Heart failure, unspecified Complete two-dimensional, color flow and Doppler transthoracic echocardiogram is performed with contrast to opacify the left ventricle and to improve the deliniation of the left ventricle endocardial borders. Summary 1. Left ventricular chamber dimension is normal. 2. Definity contrast administered improved wall motion interpretation. 3. Left ventricular systolic function is normal, estimated at 65-70%. 4. There is mildly increased left ventricular wall thickness. 5. The left ventricular diastolic function is normal. 6. E/e' 5 is not elevated. 7. Probably atrial fibrillation. 8. Left atrial chamber dimension is mildly enlarged. Left Ventricle E/e' 5 is not elevated. Probably atrial fibrillation. Definity contrast administered improved wall motion interpretation. Left ventricular chamber dimension is normal. Left ventricular systolic function is normal, estimated at 65-70%. There is mildly increased left ventricular wall thickness. The left ventricular diastolic function is normal. Right Ventricle Right ventricular systolic function is normal and with normal TAPSE 3.0 cm. Right ventricular chamber dimension is normal. Left Atria Left atrial chamber dimension is mildly enlarged. Right Atria Right atrial chamber dimension is normal. Aortic Valve The aortic valve is trileaflet. There is no aortic valve stenosis. There is no aortic valve regurgitation. Pulmonic Valve There is no pulmonic regurgitation. Mitral Valve There is no mitral valve stenosis. There is no mitral valve regurgitation. Tricuspid Valve There is no tricuspid valve regurgitation. Pericardium/Pleural There is no pericardial effusion. Inferior Vena Cava Normal inferior vena cava with >50% collapse upon inspiration consistent with normal right atrial pressure, 5 mmHg. Aorta The aortic root size at the sinus of Valsalva is normal. Left Ventricular Outflow Tract Name Value Normal LVOT 2D LVOT Diameter 2.24 cm LVOT Doppler LVOT Peak Velocity 109.02 cm/s LVOT Peak Gradient 5 mmHg LVOT Mean Gradient 3 mmHg LVOT VTI 14.49 cm LVOT VTI/AV VTI Ratio 0.70 LVOT Stroke Volume 56.93 ml Mitral Valve Name Value Normal MV Doppler
[2021-06-15] MEDS: LOSARTAN POTASSIUM 50 MG TABLET PO (09:00)
[2021-06-15] MEDS: SACCHAROMYCES BOULARDII 250 MG CAPSULE PO ×3 (09:00→16:55)
[2021-06-15] MEDS: LORATADINE 10 MG TABLET PO (09:07)
[2021-06-15] MEDS: METOPROLOL TARTRATE 50 MG TAB PO (09:07)
[2021-06-15] MEDS: dilTIAZem HCL CD 180 MG CAP.ER.24H 360 MG PO (09:07)
[2021-06-15] MEDS: FUROSEMIDE INJ 20 MG/2 ML VIAL 40 MG IV PUSH (09:08)
[2021-06-15] MEDS: DEXAMETHASONE SOD PHOS INJ 4 MG/ML VIAL IV PUSH (09:08)
[2021-06-15] MEDS: POTASSIUM CHLORIDE 10 MEQ TABLET PO (09:09)
[2021-06-15] MEDS: MAGNESIUM OXIDE 400 MG TABLET PO (09:09)
[2021-06-15] MEDS: guaiFENesin 12 HR 600 MG TABCR 1200 MG PO ×2 (09:09→21:09)
[2021-06-15] MEDS: BENZONATATE 100 MG CAPSULE 200 MG PO ×3 (09:10→16:56)
[2021-06-15] MEDS: GABAPENTIN 300 MG CAPSULE PO ×3 (09:10→16:56)
[2021-06-15] MEDS: ATORVASTATIN 40 MG TABLET PO (09:10)
[2021-06-15 10:20] LABS: Base Excess ABG 2.3 mmol/L (0-2); HCO3 ABG 25.2 mmol/L (23-29); Oxygen Content ABG 10.3 %vol (16.0-22.0); Oxygen Saturation ABG 93.2 % (95-97); Oxyhemoglobin 92.7 % (94-100); PO2 ABG 65.3 mmHg (80-90); Total Hemoglobin 7.8 g/dL (12.0-18.0); pH ABG 7.51 (7.35-7.45)
[2021-06-15 10:22] LABS: Device NASAL CANNULA; Modified Allen's Test Pass; Site Drawn LEFT RADIAL
[2021-06-15] MEDS: BARICITINIB 2 MG TABLET PO (11:00)
[2021-06-15] MEDS: ALBUTEROL SULFATE (*SP) INHALER 4 PUFF INHALATION ×2 (12:00→18:27)
[2021-06-15 12:09] LABS: Glucose Point of Care 358 mg/dl (65-105)
[2021-06-15 12:09] LABS: Glucose Point of Care 348 mg/dl (65-105)
[2021-06-15] MEDS: DIGOXIN TAB 125 MCG TABLET (12:50)
[2021-06-15] MEDS: DIGOXIN TAB 125 MCG TABLET PO (13:03)
[2021-06-15 13:35] LABS: HCO3 ABG 25.1 mmol/L (23-29); Oxygen Content ABG 16.8 %vol (16.0-22.0); Oxygen Saturation ABG 97.5 % (95-97); Oxyhemoglobin 97.1 % (94-100); PCO2 ABG 30.4 mmHg (35-45); PO2 ABG 94.6 mmHg (80-90); Total Hemoglobin 12.2 g/dL (12.0-18.0); pH ABG 7.53 (7.35-7.45)
[2021-06-15 13:38] LABS: Device HIGH FLOW THERAPY; Fractional Inspired Oxygen 50 %; Modified Allen's Test Pass; Site Drawn RIGHT RADIAL
--- NOTE | 2021-06-15 14:19 | P.PNIM_ITS ---
Progress Note: A&P Assessment and Plan (1) Atrial fibrillation with RVR: Code(s): I48.91 - Unspecified atrial fibrillation <PHILIP Johns - Last Filed: 06/15/21 14:45> Status: Acute <PHILIP Johns - Last Filed: 06/15/21 14:45> Assessment and Plan: * EKG A. fib with RVR heart rate of 153 * Continue Cardizem until heart rate is below 100 * Increased cardizem from 120mg to 240 mg daily * Continue Xarelto * Continue Cardizem and metoprolol 50 mg daily * Continue telemetry * Waiting for transfer to [facility] 06/14/2021 Transitioning to PO Cardizem, increased dose by 120 mg for a total PO dose of 360 mg, will revisit in the AM, as of 1617 hours HR controlled at 80 +/- but is still on 5 mg/hr Cardizem drip. 06/15/2021 Telemetry shows A Flutter at 1436 hours, Digoxin PO was started in addition to Cardizem as rate overnight increased back into the 140s at times and stayed over 100 most of the time. <PHILIP Johns - Last Filed: 06/15/21 14:45> (2) Pneumonia due to COVID-19 virus: Code(s): U07.1 - COVID-19; J12.82 - Pneumonia due to coronavirus disease 2019 <PHILIP Johns - Last Filed: 06/15/21 14:45> Status: Acute <PHILIP Johns - Last Filed: 06/15/21 14:45> Assessment and Plan: * COVID-positive, patient tested positive eight days ago * azithromycin and Rocephin day 2/7 * Continue olumiant remdesivir and dexamethasone * Chest x-ray indicates pneumonia or edema * Patient on 5 L nasal cannula 06/14/2021 Stable lung infiltrate and/or atelectasis per rad report. continue with regimen at this time. 06/15/2021 ABG with improvement as noted above, continue interventions listed <PHILIP Johns - Last Filed: 06/15/21 14:45> (3) Acute hyponatremia: Code(s): E87.1 - Hypo-osmolality and hyponatremia <Elvin Whelan APN-C - Last Filed: 06/15/21 14:45> Status: Acute <Elvin Whelan APN-C - Last Filed: 06/15/21 14:45> Assessment and Plan: * Improving * Na 131>134 * CMP in a.m. 06/14/2021 Na 133 continue to monitor 06/15/2021 134 continue to monitor <Elvin Whelan APN-C - Last Filed: 06/15/21 14:45> (4) Acute hypokalemia: Code(s): E87.6 - Hypokalemia <Elvin Whelan APN-C - Last Filed: 06/15/21 14:45> Status: Acute <Elvin Whelan APN-C - Last Filed: 06/15/21 14:45> Assessment and Plan: * Resolved * Potassium3.7 >3.1 * Will continue supplement 06/14/2021 WNL today 06/15/2021 K = 4 <Elvin Whelan APN-C - Last Filed: 06/15/21 14:45> (5) Elevated troponin: Code(s): R77.8 - Other specified abnormalities of plasma proteins <Elvin Whelan APN-C - Last Filed: 06/15/21 14:45> Status: Acute <KRISTEL JohnsN-C - Last Filed: 06/15/21 14:45> Assessment and Plan: * Elevated [id number] * Possibly secondary to A. fib with RVR versus COVID * Will trend * Continue telemetry 06/14/2021 Troponin 74.7, 68.5, 99.4, will obtain new in AM. No chest pain except with coughing and reproducible with sternal pressure applied, A fib is now rate controlled much better, rate was as high as 160s for short bursts. 06/15/2021 Troponin 50.8 <KRISTEL JohnsN-C - Last Filed: 06/15/21 14:45> (6) Elevated d-dimer: Code(s): R79.89 - Other specified abnormal findings of blood chemistry <PHILIP Johns - Last Filed: 06/15/21 14:45> Status: Acute <PHILIP Johns - Last Filed: 06/15/21 14:45> Assessment and Plan: * D-d
--- NOTE | 2021-06-15 14:19 | PM.IMPN ---
Progress Note: A&P Assessment and Plan (1) Atrial fibrillation with RVR: Code(s): I48.91 - Unspecified atrial fibrillation <PHILIP Johns - Last Filed: 06/15/21 14:45> Status: Acute <PHILIP Johns - Last Filed: 06/15/21 14:45> Assessment and Plan: EKG A. fib with RVR heart rate of 153 Continue Cardizem until heart rate is below 100 Increased cardizem from 120mg to 240 mg daily Continue Xarelto Continue Cardizem and metoprolol 50 mg daily Continue telemetry Waiting for transfer to [facility] 06/14/2021 Transitioning to PO Cardizem, increased dose by 120 mg for a total PO dose of 360 mg, will revisit in the AM, as of 1617 hours HR controlled at 80 +/- but is still on 5 mg/hr Cardizem drip. 06/15/2021 Telemetry shows A Flutter at 1436 hours, Digoxin PO was started in addition to Cardizem as rate overnight increased back into the 140s at times and stayed over 100 most of the time. <PHILIP Johns - Last Filed: 06/15/21 14:45> (2) Pneumonia due to COVID-19 virus: Code(s): U07.1 - COVID-19; J12.82 - Pneumonia due to coronavirus disease 2019 <PHILIP Johns - Last Filed: 06/15/21 14:45> Status: Acute <PHILIP Johns - Last Filed: 06/15/21 14:45> Assessment and Plan: COVID-positive, patient tested positive eight days ago azithromycin and Rocephin day 2/7 Continue olumiant remdesivir and dexamethasone Chest x-ray indicates pneumonia or edema Patient on 5 L nasal cannula 06/14/2021 Stable lung infiltrate and/or atelectasis per rad report. continue with regimen at this time. 06/15/2021 ABG with improvement as noted above, continue interventions listed <PHILIP Johns - Last Filed: 06/15/21 14:45> (3) Acute hyponatremia: Code(s): E87.1 - Hypo-osmolality and hyponatremia <Elvin Whelan APN-C - Last Filed: 06/15/21 14:45> Status: Acute <SHARIFA JohnsC - Last Filed: 06/15/21 14:45> Assessment and Plan: Improving Na 131>134 CMP in a.m. 06/14/2021 Na 133 continue to monitor 06/15/2021 134 continue to monitor <Elvin Whelan APN-C - Last Filed: 06/15/21 14:45> (4) Acute hypokalemia: Code(s): E87.6 - Hypokalemia <Elvin Whelan APN-C - Last Filed: 06/15/21 14:45> Status: Acute <SHARIFA JohnsC - Last Filed: 06/15/21 14:45> Assessment and Plan: Resolved Potassium3.7 >3.1 Will continue supplement 06/14/2021 WNL today 06/15/2021 K = 4 <Elvin Whelan APN-C - Last Filed: 06/15/21 14:45> (5) Elevated troponin: Code(s): R77.8 - Other specified abnormalities of plasma proteins <Elvin Whelan APN-C - Last Filed: 06/15/21 14:45> Status: Acute <Elvin Whelan APN-C - Last Filed: 06/15/21 14:45> Assessment and Plan: Elevated [id number] Possibly secondary to A. fib with RVR versus COVID Will trend Continue telemetry 06/14/2021 Troponin 74.7, 68.5, 99.4, will obtain new in AM. No chest pain except with coughing and reproducible with sternal pressure applied, A fib is now rate controlled much better, rate was as high as 160s for short bursts. 06/15/2021 Troponin 50.8 <Elvin Whelan APN-C - Last Filed: 06/15/21 14:45> (6) Elevated d-dimer: Code(s): R79.89 - Other specified abnormal findings of blood chemistry <Elvin Whelan APN-C - Last Filed: 06/15/21 14:45> Status: Acute <PHILIP Johns - Last Filed: 06/15/21 14:45> Assessment and Plan: D-dimer2.82 VQ scan pending 06/14/2021 nondiagnostic (low or intermediate) probability for pulmonary embolism per rad report. Continue Xarelto 06/15/2021 ... <PHILIP Johns - Last Filed: 06/15/21 14:45> (7) Acute kidney injury: Code(s): N17.9 - Acute kidney failure, unspecified <PHILIP Johns - Last Filed: 06/15/21 14:45> Status:
[2021-06-15] MEDS: RIVAROXABAN 10 MG TABLET 20 MG PO (16:57)
[2021-06-15 18:20] LABS: Glucose Point of Care 320 mg/dl (65-105)
[2021-06-15 21:01] LABS: Glucose Point of Care 313 mg/dl (65-105)
[2021-06-16] VITALS (10 sets, daily range): BP systolic 128–159; BP diastolic 72–94; PULSE 82–125; RESP 20; TEMP 35.7–36.6; O2SAT 91–100
[2021-06-16] MEDS: ALBUTEROL SULFATE (*SP) INHALER 4 PUFF INHALATION ×4 (00:05→17:27)
[2021-06-16 05:28] LABS: Hematocrit 37.1 % (40.0-54.0); Hemoglobin 12.1 g/dL (14.0-18.0); Mean Corpuscular HGB Conc 32.6 g/dL (32.0-36.0); Mean Corpuscular Hemoglobin 30.9 pg (27.0-31.0); Mean Corpuscular Volume 94.6 fL (78.0-102.0); Platelet Count Result 364 K/mm3 (150-420); Red Blood Count 3.92 M/mm3 (4.70-6.10); Red Cell Distribution Width 12.9 % (11.6-14.4); White Blood Count 11.1 K/mm3 (4.8-10.8)
[2021-06-16 05:44] LABS: INR 1.3; Prothrombin Time 13.4 Seconds (9.50-12.10)
[2021-06-16 05:48] LABS: Alanine Aminotransferase 43 U/L (16-63); Alkaline Phosphatase 75 U/L (46-116); Anion Gap 8 mmol/L (8-16); Aspartate Amino Transferase 39 U/L (15-37); Bilirubin,Total 0.5 mg/dL (0.00-1.00); Blood Urea Nitrogen 32 mg/dL (7-18); Calcium 8.7 mg/dL (8.5-10.1); Carbon Dioxide 31 mmol/L (21-32); Chloride 96 mmol/L (98-108); Estimated CRCL calculation 66 ml/min; Estimated Glomerular Filt Rate 50; Glucose 388 mg/dL (70-99); Osmolality Calculated 302 mOsm/kg (285-295); Potassium 3.8 mmol/L (3.5-5.1); Sodium 135 mmol/L (136-145); Total Protein 6.6 g/dL (6.4-8.2)
[2021-06-16 05:55] LABS: Band Neutrophils Percent 1 % (0-6); Lymphocytes Absolute Manual 1.11 K/mm3 (1.1-4.5); Lymphocytes Percent Manual 10 % (18-44); Neutrophils Absolute Manual 9.43 K/mm3 (1.3-6.7); Neutrophils Percent Manual 84 % (46-73); Total Cells Counted 100
[2021-06-16 05:56] LABS: Basophils Percent Manual 0 % (0-1); Eosinophils Percent Manual 0 % (1-6); Monocytes Absolute Manual 0.55 K/mm3 (0.1-0.90); Monocytes Percent Manual 5 % (3-9); Platelet Estimate Adequate (Adequate)
[2021-06-16 08:00] LABS: Glucose Point of Care 333 mg/dl (65-105)
[2021-06-16] MEDS: HYDROcodone/acetaminophen (*CRX) 7.5-325 MG TABLET 1 TAB PO (08:35)
[2021-06-16 08:43] LABS: Base Excess ABG 3.3 mmol/L (0-2); HCO3 ABG 26.8 mmol/L (23-29); Oxygen Content ABG 11.2 %vol (16.0-22.0); Oxyhemoglobin 95.6 % (94-100); PCO2 ABG 35.9 mmHg (35-45); PO2 ABG 81.7 mmHg (80-90); Total Hemoglobin 8.2 g/dL (12.0-18.0); pH ABG 7.49 (7.35-7.45)
[2021-06-16 08:56] LABS: Device HIGH FLOW THERAPY; Modified Allen's Test Pass; Site Drawn LEFT RADIAL
[2021-06-16 08:57] LABS: Fractional Inspired Oxygen 50 %
[2021-06-16] MEDS: guaiFENesin 12 HR 600 MG TABCR 1200 MG PO ×2 (09:25→21:12)
[2021-06-16] MEDS: BUDESONIDE/FORMOTEROL (*SP) 160-4.5 MCG 6 GM INH 2 PUFF INHALATION ×2 (09:41→17:27)
[2021-06-16] MEDS: DIGOXIN TAB 125 MCG TABLET PO (09:42)
[2021-06-16] MEDS: FUROSEMIDE INJ 20 MG/2 ML VIAL 40 MG IV PUSH (09:42)
[2021-06-16] MEDS: GABAPENTIN 300 MG CAPSULE PO ×3 (09:43→17:32)
[2021-06-16] MEDS: DEXAMETHASONE SOD PHOS INJ 4 MG/ML VIAL IV PUSH (09:43)
[2021-06-16] MEDS: dilTIAZem HCL CD 180 MG CAP.ER.24H 360 MG PO (09:43)
[2021-06-16] MEDS: LOSARTAN POTASSIUM 50 MG TABLET PO (09:43)
[2021-06-16] MEDS: BENZONATATE 100 MG CAPSULE 200 MG PO ×3 (09:44→17:32)
[2021-06-16] MEDS: ATORVASTATIN 40 MG TABLET PO (09:44)
[2021-06-16] MEDS: LORATADINE 10 MG TABLET PO (09:44)
[2021-06-16] MEDS: MAGNESIUM OXIDE 400 MG TABLET PO (09:44)
[2021-06-16] MEDS: METOPROLOL TARTRATE 50 MG TAB PO (09:44)
[2021-06-16] MEDS: POTASSIUM CHLORIDE 10 MEQ TABLET PO (09:45)
[2021-06-16] MEDS: SACCHAROMYCES BOULARDII 250 MG CAPSULE PO ×3 (09:46→17:27)
[2021-06-16] MEDS: BARICITINIB 2 MG TABLET PO (11:10)
--- NOTE | 2021-06-16 11:34 | P.PNIM_ITS ---
Progress Note: A&P Assessment and Plan (1) Atrial fibrillation with RVR: Code(s): I48.91 - Unspecified atrial fibrillation Status: Acute Assessment and Plan: * EKG A. fib with RVR heart rate of 153 * Continue Cardizem until heart rate is below 100 * Increased cardizem from 120mg to 240 mg daily * Continue Xarelto * Continue Cardizem and metoprolol 50 mg daily * Continue telemetry * Waiting for transfer to [facility] 06/14/2021 Transitioning to PO Cardizem, increased dose by 120 mg for a total PO dose of 360 mg, will revisit in the AM, as of 1617 hours HR controlled at 80 +/- but is still on 5 mg/hr Cardizem drip. 06/15/2021 Telemetry shows A Flutter at 1436 hours, Digoxin PO was started in addition to Cardizem as rate overnight increased back into the 140s at times and stayed over 100 most of the time. (2) Pneumonia due to COVID-19 virus: Code(s): U07.1 - COVID-19; J12.82 - Pneumonia due to coronavirus disease 2019 Status: Acute Assessment and Plan: * COVID-positive, patient tested positive eight days ago * azithromycin and Rocephin day 2/7 * Continue olumiant remdesivir and dexamethasone * Chest x-ray indicates pneumonia or edema * Patient on 5 L nasal cannula 06/14/2021 Stable lung infiltrate and/or atelectasis per rad report. continue with regimen at this time. 06/15/2021 ABG with improvement as noted above, continue interventions listed 06/16/2021 ABG new WNL, respiratory status still guarded but slowly improving, continues on HFNC with slow wean current settings 40L/40% FiO2 with SpO2 >92% at rest. Repeat ABG in AM (3) Acute hyponatremia: Code(s): E87.1 - Hypo-osmolality and hyponatremia Status: Acute Assessment and Plan: * Improving * Na 131>134 * CMP in a.m. 06/14/2021 Na 133 continue to monitor 06/15/2021 134 continue to monitor 06/16/2021 135 (4) Acute hypokalemia: Code(s): E87.6 - Hypokalemia Status: Acute Assessment and Plan: * Resolved * Potassium3.7 >3.1 * Will continue supplement 06/14/2021 WNL today 06/15/2021 K = 4 06/16/2021 3.8, last Magnesium 2.6 on 06/14/2021 (5) Elevated troponin: Code(s): R77.8 - Other specified abnormalities of plasma proteins Status: Acute Assessment and Plan: * Elevated [id number] * Possibly secondary to A. fib with RVR versus COVID * Will trend * Continue telemetry 06/14/2021 Troponin 74.7, 68.5, 99.4, will obtain new in AM. No chest pain except with coughing and reproducible with sternal pressure applied, A fib is now rate controlled much better, rate was as high as 160s for short bursts. 06/15/2021 Troponin 50.8 06/16/2021 ... (6) Elevated d-dimer: Code(s): R79.89 - Other specified abnormal findings of blood chemistry Status: Acute Assessment and Plan: * D-dimer2.82 * VQ scan pending 06/14/2021 nondiagnostic (low or intermediate) probability for pulmonary embolism per rad report. Continue Xarelto 06/15/2021 ... (7) Acute kidney injury: Code(s): N17.9 - Acute kidney failure, unspecified Status: Acute Assessment and Plan: * BUN/CR 39/2.27>53/2.24 unsure of patient's baseline. Will probably need to call primary care physician to get baseline * Avoid nephrotoxic agent * Renal dose all medication * CMP in a.m. * Cautiously IV hydrate 06/14/2021 Improving renal function, continue to monitor. IVF stopped as Pt is taking PO fluids quite well. 06/15/2021 Renal function showing some improvement again today. continue to monitor 06/16/19
--- NOTE | 2021-06-16 11:34 | PM.IMPN ---
Progress Note: A&P Assessment and Plan (1) Atrial fibrillation with RVR: Code(s): I48.91 - Unspecified atrial fibrillation Status: Acute Assessment and Plan: EKG A. fib with RVR heart rate of 153 Continue Cardizem until heart rate is below 100 Increased cardizem from 120mg to 240 mg daily Continue Xarelto Continue Cardizem and metoprolol 50 mg daily Continue telemetry Waiting for transfer to [facility] 06/14/2021 Transitioning to PO Cardizem, increased dose by 120 mg for a total PO dose of 360 mg, will revisit in the AM, as of 1617 hours HR controlled at 80 +/- but is still on 5 mg/hr Cardizem drip. 06/15/2021 Telemetry shows A Flutter at 1436 hours, Digoxin PO was started in addition to Cardizem as rate overnight increased back into the 140s at times and stayed over 100 most of the time. (2) Pneumonia due to COVID-19 virus: Code(s): U07.1 - COVID-19; J12.82 - Pneumonia due to coronavirus disease 2019 Status: Acute Assessment and Plan: COVID-positive, patient tested positive eight days ago azithromycin and Rocephin day 2/7 Continue olumiant remdesivir and dexamethasone Chest x-ray indicates pneumonia or edema Patient on 5 L nasal cannula 06/14/2021 Stable lung infiltrate and/or atelectasis per rad report. continue with regimen at this time. 06/15/2021 ABG with improvement as noted above, continue interventions listed 06/16/2021 ABG new WNL, respiratory status still guarded but slowly improving, continues on HFNC with slow wean current settings 40L/40% FiO2 with SpO2 >92% at rest. Repeat ABG in AM (3) Acute hyponatremia: Code(s): E87.1 - Hypo-osmolality and hyponatremia Status: Acute Assessment and Plan: Improving Na 131>134 CMP in a.m. 06/14/2021 Na 133 continue to monitor 06/15/2021 134 continue to monitor 06/16/2021 135 (4) Acute hypokalemia: Code(s): E87.6 - Hypokalemia Status: Acute Assessment and Plan: Resolved Potassium3.7 >3.1 Will continue supplement 06/14/2021 WNL today 06/15/2021 K = 4 06/16/2021 3.8, last Magnesium 2.6 on 06/14/2021 (5) Elevated troponin: Code(s): R77.8 - Other specified abnormalities of plasma proteins Status: Acute Assessment and Plan: Elevated njoipcoh73.5 Possibly secondary to A. fib with RVR versus COVID Will trend Continue telemetry 06/14/2021 Troponin 74.7, 68.5, 99.4, will obtain new in AM. No chest pain except with coughing and reproducible with sternal pressure applied, A fib is now rate controlled much better, rate was as high as 160s for short bursts. 06/15/2021 Troponin 50.8 06/16/2021 ... (6) Elevated d-dimer: Code(s): R79.89 - Other specified abnormal findings of blood chemistry Status: Acute Assessment and Plan: D-dimer2.82 VQ scan pending 06/14/2021 nondiagnostic (low or intermediate) probability for pulmonary embolism per rad report. Continue Xarelto 06/15/2021 ... (7) Acute kidney injury: Code(s): N17.9 - Acute kidney failure, unspecified Status: Acute Assessment and Plan: BUN/CR 39/2.27>53/2.24 unsure of patient's baseline. Will probably need to call primary care physician to get baseline Avoid nephrotoxic agent Renal dose all medication CMP in a.m. Cautiously IV hydrate 06/14/2021 Improving renal function, continue to monitor. IVF stopped as Pt is taking PO fluids quite well. 06/15/2021 Renal function showing some improvement again today. continue to monitor 06/16/2021 Continue to improve Cr today 1.42 down from initial 2.61 (8) Pulmonary edema: Code(s): J81.1 - Chronic pulmonary edema Status: Acute Assessment and Plan: Chest x-ray indicate pulmonary edema BNP 493>687 echo in the am 06/14/2021 Echo was ordered for 06/15/2021, fine rales in posterior bases. 06/15/2021 Fine rales resolved, Wheezing and Rhonchi continue with slight improvement, continue Lasix 40 mg BID 06/16/19
[2021-06-16 11:42] LABS: Glucose Point of Care 415 mg/dl (65-105)
[2021-06-16] MEDS: RIVAROXABAN 10 MG TABLET 20 MG PO (17:28)
[2021-06-16 17:47] LABS: Glucose Point of Care 352 mg/dl (65-105)
[2021-06-16] MEDS: traZODone HCL 50 MG TABLET PO (21:11)
[2021-06-16 22:11] LABS: Glucose Point of Care 366 mg/dl (65-105)
[2021-06-17] VITALS (10 sets, daily range): BP systolic 109–135; BP diastolic 75–89; PULSE 80–123; RESP 16–20; TEMP 35.8–36.5; O2SAT 93–96
[2021-06-17] MEDS: ALBUTEROL SULFATE (*SP) INHALER 4 PUFF INHALATION ×4 (00:05→17:57)
[2021-06-17 05:32] LABS: Base Excess ABG 4.8 mmol/L (0-2); HCO3 ABG 27.7 mmol/L (23-29); Oxygen Content ABG 17.5 %vol (16.0-22.0); Oxygen Saturation ABG 94.8 % (95-97); Oxyhemoglobin 94.7 % (94-100); PCO2 ABG 35.1 mmHg (35-45); PO2 ABG 71.9 mmHg (80-90); Total Hemoglobin 13.1 g/dL (12.0-18.0); pH ABG 7.52 (7.35-7.45)
[2021-06-17 05:35] LABS: Device HIGH FLOW THERAPY; Hematocrit 39.1 % (40.0-54.0); Mean Corpuscular HGB Conc 33.2 g/dL (32.0-36.0); Mean Corpuscular Hemoglobin 31.3 pg (27.0-31.0); Mean Corpuscular Volume 94.2 fL (78.0-102.0); Mean Platelet Volume 11.2 fl (8.7-11.0); Modified Allen's Test Pass; Platelet Count Result 498 K/mm3 (150-420); Red Blood Count 4.15 M/mm3 (4.70-6.10); Red Cell Distribution Width 12.7 % (11.6-14.4); Site Drawn LEFT RADIAL; White Blood Count 13.3 K/mm3 (4.8-10.8)
[2021-06-17] MEDS: BUDESONIDE/FORMOTEROL (*SP) 160-4.5 MCG 6 GM INH 2 PUFF INHALATION ×2 (05:51→18:42)
[2021-06-17 06:01] LABS: Alanine Aminotransferase 39 U/L (16-63); Albumin Level 2.2 g/dL (3.4-5.0); Alkaline Phosphatase 75 U/L (46-116); Anion Gap 9 mmol/L (8-16); Aspartate Amino Transferase 24 U/L (15-37); Bilirubin,Total 0.5 mg/dL (0.00-1.00); Blood Urea Nitrogen 32 mg/dL (7-18); Calcium 8.8 mg/dL (8.5-10.1); Carbon Dioxide 29 mmol/L (21-32); Chloride 96 mmol/L (98-108); Estimated CRCL calculation 70 ml/min; Estimated Glomerular Filt Rate 53; Glucose 376 mg/dL (70-99); NT Pro B Type Natriuretic Pept 483 pg/mL (0-125); Osmolality Calculated 299 mOsm/kg (285-295); Potassium 3.6 mmol/L (3.5-5.1); Sodium 134 mmol/L (136-145); Total Protein 6.7 g/dL (6.4-8.2)
[2021-06-17 07:40] LABS: Band Neutrophils Percent 0 % (0-6); Lymphocytes Absolute Manual 1.33 K/mm3 (1.1-4.5); Lymphocytes Percent Manual 10 % (18-44); Monocytes Absolute Manual 0.53 K/mm3 (0.1-0.90); Monocytes Percent Manual 4 % (3-9); Neutrophils Absolute Manual 11.43 K/mm3 (1.3-6.7); Neutrophils Percent Manual 86 % (46-73); Total Cells Counted 100
[2021-06-17 07:41] LABS: Basophils Percent Manual 0 % (0-1); Eosinophils Percent Manual 0 % (1-6)
[2021-06-17 08:59] LABS: Glucose Point of Care 322 mg/dl (65-105)
[2021-06-17] MEDS: FUROSEMIDE INJ 20 MG/2 ML VIAL 40 MG IV PUSH (09:00)
[2021-06-17] MEDS: LOSARTAN POTASSIUM 50 MG TABLET PO (09:00)
[2021-06-17] MEDS: METOPROLOL TARTRATE 50 MG TAB PO (09:10)
[2021-06-17] MEDS: MAGNESIUM OXIDE 400 MG TABLET PO (09:10)
[2021-06-17] MEDS: LORATADINE 10 MG TABLET PO (09:10)
[2021-06-17] MEDS: GABAPENTIN 300 MG CAPSULE PO ×3 (09:10→17:56)
[2021-06-17] MEDS: guaiFENesin 12 HR 600 MG TABCR 1200 MG PO ×2 (09:10→21:24)
[2021-06-17] MEDS: DEXAMETHASONE SOD PHOS INJ 4 MG/ML VIAL IV PUSH (09:10)
[2021-06-17] MEDS: BENZONATATE 100 MG CAPSULE 200 MG PO ×3 (09:11→17:56)
[2021-06-17] MEDS: DIGOXIN TAB 125 MCG TABLET PO (09:12)
[2021-06-17] MEDS: ATORVASTATIN 40 MG TABLET PO (09:13)
[2021-06-17] MEDS: SACCHAROMYCES BOULARDII 250 MG CAPSULE PO ×3 (09:14→17:57)
[2021-06-17] MEDS: POTASSIUM CHLORIDE 10 MEQ TABLET PO (09:15)
--- NOTE | 2021-06-17 09:21 | PM.IMPN ---
Progress Note: A&P Assessment and Plan (1) Atrial fibrillation with RVR: Code(s): I48.91 - Unspecified atrial fibrillation Status: Acute Assessment and Plan: EKG A. fib with RVR heart rate of 153 Continue Cardizem until heart rate is below 100 Increased cardizem from 120mg to 240 mg daily Continue Xarelto Continue Cardizem and metoprolol 50 mg daily Continue telemetry Waiting for transfer to [facility] 06/14/2021 Transitioning to PO Cardizem, increased dose by 120 mg for a total PO dose of 360 mg, will revisit in the AM, as of 1617 hours HR controlled at 80 +/- but is still on 5 mg/hr Cardizem drip. 06/15/2021 Telemetry shows A Flutter at 1436 hours, Digoxin PO was started in addition to Cardizem as rate overnight increased back into the 140s at times and stayed over 100 most of the time. 06/17/2021 Rate better controlled with current Digoxin and Cardizem regimen. No CP (2) Pneumonia due to COVID-19 virus: Code(s): U07.1 - COVID-19; J12.82 - Pneumonia due to coronavirus disease 2019 Status: Acute Assessment and Plan: COVID-positive, patient tested positive eight days ago azithromycin and Rocephin day 2/7 Continue olumiant remdesivir and dexamethasone Chest x-ray indicates pneumonia or edema Patient on 5 L nasal cannula 06/14/2021 Stable lung infiltrate and/or atelectasis per rad report. continue with regimen at this time. 06/15/2021 ABG with improvement as noted above, continue interventions listed 06/16/2021 ABG new WNL, respiratory status still guarded but slowly improving, continues on HFNC with slow wean current settings 40L/40% FiO2 with SpO2 >92% at rest. Repeat ABG in AM 06/17/2021 ABG improving SpO2 is 71.9, Pt does take his HFNC off at times causing uncertainty regarding accuracy of his ABG, Pt and I discussed importance of leaving his HFNC on so that lab work is accurate. He understood and stated he will keep his device on. Will recheck ABG in AM. (3) Acute hyponatremia: Code(s): E87.1 - Hypo-osmolality and hyponatremia Status: Acute Assessment and Plan: Improving Na 131>134 CMP in a.m. 06/14/2021 Na 133 continue to monitor 06/15/2021 134 continue to monitor 06/16/2021 135 06/17/2021 Stable will continue to monitor, Renal function improving Cr 1.35 (4) Acute hypokalemia: Code(s): E87.6 - Hypokalemia Status: Acute Assessment and Plan: Resolved Potassium3.7 >3.1 Will continue supplement 06/14/2021 WNL today 06/15/2021 K = 4 06/16/2021 3.8, last Magnesium 2.6 on 06/14/2021 06/17/2021 3.6 Stable (5) Elevated troponin: Code(s): R77.8 - Other specified abnormalities of plasma proteins Status: Acute Assessment and Plan: Elevated .5 Possibly secondary to A. fib with RVR versus COVID Will trend Continue telemetry 06/14/2021 Troponin 74.7, 68.5, 99.4, will obtain new in AM. No chest pain except with coughing and reproducible with sternal pressure applied, A fib is now rate controlled much better, rate was as high as 160s for short bursts. 06/15/2021 Troponin 50.8 06/16/2021 ... (6) Elevated d-dimer: Code(s): R79.89 - Other specified abnormal findings of blood chemistry Status: Acute Assessment and Plan: D-dimer2.82 VQ scan pending 06/14/2021 nondiagnostic (low or intermediate) probability for pulmonary embolism per rad report. Continue Xarelto 06/15/2021 ... 06/17/[address] Ellis, [employer] workday consultant for Dr. Breen who agreed with decreasing the Eliquis dose at 1/2 previous dose, continue at 2.5 mg BID. (7) Acute kidney injury: Code(s): N17.9 - Acute kidney failure, unspecified Status: Acute Assessment and Plan: BUN/CR 39/2.27>53/2.24 unsure of patient's baseline. Will probably need to call primary care physician to get baseline Avoid nephrotoxic agent Renal dose all medication CMP in a.m. Cautiously IV hydrate 06/14/2021 Improvi
[2021-06-17 09:46] LABS: Fractional Inspired Oxygen 40 %
[2021-06-17] MEDS: dilTIAZem HCL CD 180 MG CAP.ER.24H 360 MG PO (10:08)
[2021-06-17] MEDS: BARICITINIB 2 MG TABLET PO (10:17)
[2021-06-17 11:56] LABS: Glucose Point of Care > 450 mg/dl (65-105)
[2021-06-17 17:39] LABS: Glucose Point of Care 386 mg/dl (65-105)
[2021-06-17] MEDS: RIVAROXABAN 10 MG TABLET 20 MG PO (17:57)
[2021-06-17 22:56] LABS: Glucose Point of Care 435 mg/dl (65-105)
[2021-06-18] VITALS (9 sets, daily range): BP systolic 119–133; BP diastolic 72–85; PULSE 77–90; RESP 18–20; TEMP 36.2–36.7; O2SAT 92–96
[2021-06-18] MEDS: ALBUTEROL SULFATE (*SP) INHALER 4 PUFF INHALATION ×4 (00:20→17:23)
[2021-06-18] MEDS: BUDESONIDE/FORMOTEROL (*SP) 160-4.5 MCG 6 GM INH 2 PUFF INHALATION ×2 (06:02→21:06)
[2021-06-18 06:41] LABS: Hematocrit 37.2 % (40.0-54.0); Hemoglobin 12.6 g/dL (14.0-18.0); Immature Platelet Fraction Pct 4.6 % (1.0-7.0); Mean Corpuscular HGB Conc 33.9 g/dL (32.0-36.0); Mean Corpuscular Hemoglobin 31.7 pg (27.0-31.0); Mean Corpuscular Volume 93.7 fL (78.0-102.0); Mean Platelet Volume 11.4 fl (8.7-11.0); Platelet Count Result 536 K/mm3 (150-420); Red Blood Count 3.97 M/mm3 (4.70-6.10); Red Cell Distribution Width 12.5 % (11.6-14.4)
[2021-06-18 06:44] LABS: Base Excess ABG 5.1 mmol/L (0-2); HCO3 ABG 28.4 mmol/L (23-29); Oxygen Content ABG 23.1 %vol (16.0-22.0); Oxygen Saturation ABG 94.1 % (95-97); Oxyhemoglobin 93.6 % (94-100); PCO2 ABG 37.6 mmHg (35-45); PO2 ABG 69.2 mmHg (80-90); Total Hemoglobin 17.6 g/dL (12.0-18.0)
[2021-06-18 06:51] LABS: Device HIGH FLOW THERAPY; Fractional Inspired Oxygen 40 %; Modified Allen's Test Pass; Site Drawn RIGHT RADIAL
[2021-06-18 07:10] LABS: Alanine Aminotransferase 35 U/L (16-63); Albumin Level 2.3 g/dL (3.4-5.0); Alkaline Phosphatase 74 U/L (46-116); Anion Gap 7 mmol/L (8-16); Aspartate Amino Transferase 23 U/L (15-37); Band Neutrophils Percent 0 % (0-6); Bilirubin,Total 0.4 mg/dL (0.00-1.00); Blood Urea Nitrogen 34 mg/dL (7-18); Calcium 8.6 mg/dL (8.5-10.1); Carbon Dioxide 31 mmol/L (21-32); Chloride 95 mmol/L (98-108); Estimated CRCL calculation 67 ml/min; Estimated Glomerular Filt Rate 51; Glucose 360 mg/dL (70-99); Lymphocytes Absolute Manual 0.84 K/mm3 (1.1-4.5); Lymphocytes Percent Manual 6 % (18-44); Monocytes Absolute Manual 0.42 K/mm3 (0.1-0.90); Monocytes Percent Manual 3 % (3-9); Neutrophils Percent Manual 90 % (46-73); Osmolality Calculated 298 mOsm/kg (285-295); Platelet Estimate Increased (Adequate); Potassium 3.6 mmol/L (3.5-5.1); Sodium 133 mmol/L (136-145); Total Cells Counted 100; Total Protein 6.7 g/dL (6.4-8.2)
[2021-06-18 07:12] LABS: NT Pro B Type Natriuretic Pept 131 pg/mL (0-125)
--- NOTE | 2021-06-18 08:42 | PM.IMPN ---
Progress Note: A&P Assessment and Plan (1) Atrial fibrillation with RVR: Code(s): I48.91 - Unspecified atrial fibrillation <PHILIP Johns - Last Filed: 06/18/21 15:09> Status: Acute <PHILIP Johns - Last Filed: 06/18/21 15:09> Assessment and Plan: EKG A. fib with RVR heart rate of 153 Continue Cardizem until heart rate is below 100 Increased cardizem from 120mg to 240 mg daily Continue Xarelto Continue Cardizem and metoprolol 50 mg daily Continue telemetry Waiting for transfer to [facility] 06/14/2021 Transitioning to PO Cardizem, increased dose by 120 mg for a total PO dose of 360 mg, will revisit in the AM, as of 1617 hours HR controlled at 80 +/- but is still on 5 mg/hr Cardizem drip. 06/15/2021 Telemetry shows A Flutter at 1436 hours, Digoxin PO was started in addition to Cardizem as rate overnight increased back into the 140s at times and stayed over 100 most of the time. 06/17/2021 Rate better controlled with current Digoxin and Cardizem regimen. No CP 06/18/2021 Rather well controlled, will continue this regimen on DC <PHILIP Johns - Last Filed: 06/18/21 15:09> (2) Pneumonia due to COVID-19 virus: Code(s): U07.1 - COVID-19; J12.82 - Pneumonia due to coronavirus disease 2018 <PHILIP Johns - Last Filed: 06/18/21 15:09> Status: Acute <PHILIP Johns - Last Filed: 06/18/21 15:09> Assessment and Plan: COVID-positive, patient tested positive eight days ago azithromycin and Rocephin day 2/7 Continue olumiant remdesivir and dexamethasone Chest x-ray indicates pneumonia or edema Patient on 5 L nasal cannula 06/14/2021 Stable lung infiltrate and/or atelectasis per rad report. continue with regimen at this time. 06/15/2021 ABG with improvement as noted above, continue interventions listed 06/16/2021 ABG new WNL, respiratory status still guarded but slowly improving, continues on HFNC with slow wean current settings 40L/40% FiO2 with SpO2 >92% at rest. Repeat ABG in AM 06/17/2021 ABG improving SpO2 is 71.9, Pt does take his HFNC off at times causing uncertainty regarding accuracy of his ABG, Pt and I discussed importance of leaving his HFNC on so that lab work is accurate. He understood and stated he will keep his device on. Will recheck ABG in AM. 06/18/2021 NC 5 L/min w/ SpO2 >92%, will need a walk test in a couple days. <PHILIP Johns - Last Filed: 06/18/21 15:09> (3) Acute hyponatremia: Code(s): E87.1 - Hypo-osmolality and hyponatremia <PHILIP Johns - Last Filed: 06/18/21 15:09> Status: Acute <PHILIP Johns - Last Filed: 06/18/21 15:09> Assessment and Plan: Improving Na 131>134 CMP in a.m. 06/14/2021 Na 133 continue to monitor 06/15/2021 134 continue to monitor 06/16/2021 135 06/17/2021 Stable will continue to monitor, Renal function improving Cr 1.35 06/18/2021 133 <PHILIP Johns - Last Filed: 06/18/21 15:09> (4) Acute hypokalemia: Code(s): E87.6 - Hypokalemia <SHARIFA JohnsC - Last Filed: 06/18/21 15:09> Status: Acute <SHARIFA JohnsC - Last Filed: 06/18/21 15:09> Assessment and Plan: Resolved Potassium3.7 >3.1 Will continue supplement 06/14/2021 WNL today 06/15/2021 K = 4 06/16/2021 3.8, last Magnesium 2.6 on 06/14/2021 06/17/2021 3.6 Stable 06/18/2021 3.6 <PHILIP Johns - Last Filed: 06/18/21 15:09> (5) Elevated troponin: Code(s): R77.8 - Other specified abnormalities of plasma proteins <PHILIP Johns - Last Filed: 06/18/21 15:09> Status: Acute <PHILIP Johns - Last Filed: 06/18/21 15:09> Assessment and Plan: Elevated [id number] Possibly secondary to A. fib with RVR versus COVID Will trend Continue telemetry 06/14/2021 Troponin 74.7, 68.5, 99.4, will obtain new in AM. No chest pain
[2021-06-18] MEDS: FUROSEMIDE INJ 20 MG/2 ML VIAL IV PUSH (08:58)
[2021-06-18] MEDS: DEXAMETHASONE SOD PHOS INJ 4 MG/ML VIAL IV PUSH (08:58)
[2021-06-18] MEDS: dilTIAZem HCL CD 180 MG CAP.ER.24H 360 MG PO (08:59)
[2021-06-18] MEDS: BENZONATATE 100 MG CAPSULE 200 MG PO ×3 (08:59→17:22)
[2021-06-18] MEDS: MAGNESIUM OXIDE 400 MG TABLET PO (09:00)
[2021-06-18] MEDS: guaiFENesin 12 HR 600 MG TABCR 1200 MG PO ×2 (09:00→21:12)
[2021-06-18] MEDS: GABAPENTIN 300 MG CAPSULE PO ×3 (09:00→17:22)
[2021-06-18] MEDS: DIGOXIN TAB 125 MCG TABLET PO (09:01)
[2021-06-18] MEDS: ATORVASTATIN 40 MG TABLET PO (09:01)
[2021-06-18] MEDS: METOPROLOL TARTRATE 50 MG TAB PO (09:01)
[2021-06-18] MEDS: LORATADINE 10 MG TABLET PO (09:01)
[2021-06-18] MEDS: POTASSIUM CHLORIDE 10 MEQ TABLET PO (09:02)
[2021-06-18] MEDS: LOSARTAN POTASSIUM 50 MG TABLET PO (09:02)
[2021-06-18] MEDS: SACCHAROMYCES BOULARDII 250 MG CAPSULE PO ×3 (09:06→17:23)
[2021-06-18 09:15] LABS: Glucose Point of Care 284 mg/dl (65-105)
[2021-06-18] MEDS: INSULIN GLARGINE (*BKC) 100 UNITS/ML 10 UNITS SUB-Q (10:57)
[2021-06-18 11:34] LABS: Glucose Point of Care 338 mg/dl (65-105)
[2021-06-18] MEDS: BARICITINIB 2 MG TABLET PO (11:36)
--- NOTE | 2021-06-18 16:47 | PC.NURSE ---
Patient taken off bipap and placed on O2 at 5 L via n/c at 0830. SPO2 remains in mid 90's with no SOB or difficulty noted.
[2021-06-18] MEDS: RIVAROXABAN 10 MG TABLET 20 MG PO (17:22)
[2021-06-18 17:33] LABS: Glucose Point of Care 340 mg/dl (65-105)
[2021-06-18] MEDS: HYDROcodone/acetaminophen (*CRX) 7.5-325 MG TABLET 1 TAB PO (21:17)
[2021-06-18 21:36] LABS: Glucose Point of Care 365 mg/dl (65-105)
[2021-06-19] VITALS (11 sets, daily range): BP systolic 108–146; BP diastolic 66–86; PULSE 60–99; RESP 18–20; TEMP 36.1–36.6; O2SAT 93–97
[2021-06-19] MEDS: ALBUTEROL SULFATE (*SP) INHALER 4 PUFF INHALATION ×4 (00:17→18:40)
[2021-06-19] MEDS: BUDESONIDE/FORMOTEROL (*SP) 160-4.5 MCG 6 GM INH 2 PUFF INHALATION ×2 (06:14→18:40)
[2021-06-19 06:15] LABS: Hemoglobin 12.9 g/dL (14.0-18.0); Immature Platelet Fraction Pct 4.9 % (1.0-7.0); Mean Corpuscular HGB Conc 33.9 g/dL (32.0-36.0); Mean Corpuscular Hemoglobin 31.9 pg (27.0-31.0); Mean Corpuscular Volume 94.1 fL (78.0-102.0); Mean Platelet Volume 11.4 fl (8.7-11.0); Platelet Count Result 566 K/mm3 (150-420); Red Blood Count 4.04 M/mm3 (4.70-6.10); Red Cell Distribution Width 12.5 % (11.6-14.4)
[2021-06-19 06:38] LABS: Alanine Aminotransferase 34 U/L (16-63); Albumin Level 2.4 g/dL (3.4-5.0); Alkaline Phosphatase 75 U/L (46-116); Anion Gap 9 mmol/L (8-16); Aspartate Amino Transferase 27 U/L (15-37); Bilirubin,Total 0.4 mg/dL (0.00-1.00); Blood Urea Nitrogen 36 mg/dL (7-18); Calcium 8.7 mg/dL (8.5-10.1); Carbon Dioxide 30 mmol/L (21-32); Chloride 93 mmol/L (98-108); Estimated CRCL calculation 66 ml/min; Estimated Glomerular Filt Rate 50; Glucose 359 mg/dL (70-99); NT Pro B Type Natriuretic Pept 83 pg/mL (0-125); Osmolality Calculated 296 mOsm/kg (285-295); Potassium 3.9 mmol/L (3.5-5.1); Sodium 132 mmol/L (136-145); Total Protein 6.5 g/dL (6.4-8.2)
[2021-06-19 06:53] LABS: Band Neutrophils Percent 0 % (0-6); Basophils Percent Manual 0 % (0-1); Eosinophils Percent Manual 0 % (1-6); Lymphocytes Absolute Manual 1.65 K/mm3 (1.1-4.5); Lymphocytes Percent Manual 11 % (18-44); Metamyelocytes Percent 1 %; Monocytes Percent Manual 10 % (3-9); Neutrophils Percent Manual 78 % (46-73)
[2021-06-19 07:34] LABS: Platelet Estimate Adequate (Adequate)
--- NOTE | 2021-06-19 08:31 | PM.IMPN ---
Progress Note: A&P Assessment and Plan (1) Atrial fibrillation with RVR: Code(s): I48.91 - Unspecified atrial fibrillation <PHILIP Johns - Last Filed: 06/19/21 17:03> Status: Acute <PHILIP Johns - Last Filed: 06/19/21 17:03> Assessment and Plan: EKG A. fib with RVR heart rate of 153 Continue Cardizem until heart rate is below 100 Increased cardizem from 120mg to 240 mg daily Continue Xarelto Continue Cardizem and metoprolol 50 mg daily Continue telemetry Waiting for transfer to [facility] 06/14/2021 Transitioning to PO Cardizem, increased dose by 120 mg for a total PO dose of 360 mg, will revisit in the AM, as of 1617 hours HR controlled at 80 +/- but is still on 5 mg/hr Cardizem drip. 06/15/2021 Telemetry shows A Flutter at 1436 hours, Digoxin PO was started in addition to Cardizem as rate overnight increased back into the 140s at times and stayed over 100 most of the time. 06/17/2021 Rate better controlled with current Digoxin and Cardizem regimen. No CP 06/18/2021 Rather well controlled, will continue this regimen on DC 06/19/2021 Rate regular at 1650 hours at 64 bpm <PHILIP Johns - Last Filed: 06/19/21 17:03> (2) Pneumonia due to COVID-19 virus: Code(s): U07.1 - COVID-19; J12.82 - Pneumonia due to coronavirus disease 2019 <PHILIP Johns - Last Filed: 06/19/21 17:03> Status: Acute <PHILIP Johns - Last Filed: 06/19/21 17:03> Assessment and Plan: COVID-positive, patient tested positive eight days ago azithromycin and Rocephin day 2/7 Continue olumiant remdesivir and dexamethasone Chest x-ray indicates pneumonia or edema Patient on 5 L nasal cannula 06/14/2021 Stable lung infiltrate and/or atelectasis per rad report. continue with regimen at this time. 06/15/2021 ABG with improvement as noted above, continue interventions listed 06/16/2021 ABG new WNL, respiratory status still guarded but slowly improving, continues on HFNC with slow wean current settings 40L/40% FiO2 with SpO2 >92% at rest. Repeat ABG in AM 06/17/2021 ABG improving SpO2 is 71.9, Pt does take his HFNC off at times causing uncertainty regarding accuracy of his ABG, Pt and I discussed importance of leaving his HFNC on so that lab work is accurate. He understood and stated he will keep his device on. Will recheck ABG in AM. 06/18/2021 NC 5 L/min w/ SpO2 >92%, will need a walk test in a couple days. 06/19/2021 Today was last day of Rocephin, Azithromycin finished about 2 days ago. <PHILIP Johns - Last Filed: 06/19/21 17:03> (3) Acute hyponatremia: Code(s): E87.1 - Hypo-osmolality and hyponatremia <PHILIP Johns - Last Filed: 06/19/21 17:03> Status: Acute <PHILIP Johns - Last Filed: 06/19/21 17:03> Assessment and Plan: Improving Na 131>134 CMP in a.m. 06/14/2021 Na 133 continue to monitor 06/15/2021 134 continue to monitor 06/16/2021 135 06/17/2021 Stable will continue to monitor, Renal function improving Cr 1.35 06/18/2021 133 06/19/2021 132 added 1 gram Sodium Tabs daily <PHILIP Johns - Last Filed: 06/19/21 17:03> (4) Acute hypokalemia: Code(s): E87.6 - Hypokalemia <PHILIP Johns - Last Filed: 06/19/21 17:03> Status: Acute <PHILIP Johns - Last Filed: 06/19/21 17:03> Assessment and Plan: Resolved Potassium3.7 >3.1 Will continue supplement 06/14/2021 WNL today 06/15/2021 K = 4 06/16/2021 3.8, last Magnesium 2.6 on 06/14/2021 06/17/2021 3.6 Stable 06/18/2021 3.6 06/19/2021 3.9 stable <PHILIP Johns - Last Filed: 06/19/21 17:03> (5) Elevated troponin: Code(s): R77.8 - Other specified abnormalities of plasma proteins <PHILIP Johns - Last Filed: 06/19/21 17:03> Status: Acute <PHILIP Johns - Last Filed: 06/19/21 17:03> Assessment and Diane
[2021-06-19] MEDS: SACCHAROMYCES BOULARDII 250 MG CAPSULE PO ×3 (08:55→16:54)
[2021-06-19] MEDS: DEXAMETHASONE SOD PHOS INJ 4 MG/ML VIAL IV PUSH (08:55)
[2021-06-19] MEDS: FUROSEMIDE INJ 20 MG/2 ML VIAL IV PUSH (08:55)
[2021-06-19] MEDS: MAGNESIUM OXIDE 400 MG TABLET PO (08:56)
[2021-06-19] MEDS: GABAPENTIN 300 MG CAPSULE PO ×3 (08:56→16:53)
[2021-06-19] MEDS: dilTIAZem HCL CD 180 MG CAP.ER.24H 360 MG PO (08:56)
[2021-06-19] MEDS: ATORVASTATIN 40 MG TABLET PO (08:56)
[2021-06-19] MEDS: guaiFENesin 12 HR 600 MG TABCR 1200 MG PO ×2 (08:56→20:04)
[2021-06-19] MEDS: LORATADINE 10 MG TABLET PO (08:57)
[2021-06-19] MEDS: POTASSIUM CHLORIDE 10 MEQ TABLET PO (08:57)
[2021-06-19] MEDS: DIGOXIN TAB 125 MCG TABLET PO (08:57)
[2021-06-19] MEDS: BENZONATATE 100 MG CAPSULE 200 MG PO ×3 (08:58→16:52)
[2021-06-19] MEDS: LOSARTAN POTASSIUM 50 MG TABLET PO (09:09)
[2021-06-19] MEDS: INSULIN GLARGINE (*BKC) 100 UNITS/ML 10 UNITS SUB-Q (10:42)
[2021-06-19] MEDS: METOPROLOL TARTRATE 50 MG TAB PO (10:42)
[2021-06-19] MEDS: BARICITINIB 2 MG TABLET PO (11:08)
[2021-06-19] MEDS: SODIUM CHLORIDE 1 GM TABLET PO (11:08)
[2021-06-19 11:25] LABS: Glucose Point of Care 324 mg/dl (65-105)
[2021-06-19 16:50] LABS: Glucose Point of Care 256 mg/dl (65-105)
[2021-06-19] MEDS: RIVAROXABAN 10 MG TABLET 20 MG PO (16:52)
--- NOTE | 2021-06-19 18:31 | PC.NURSE ---
Patient did not use his call light and ambulated unassisted to the bedside commode. Patient had a copious amount of loose stool on the floor. As investment underwriter was in assisting another patient, nurse discovered patient's mess and began to clean it up. Patient was rude to nurses as nurses were attempting to clean up. Nurses reeducated patient to use call light for assistance and stressed that it was very dangerous for patient to ambulate without assist. Nurses urged patient not to yell at nurses, and to use call light for safety. Patient verbalized understanding.
[2021-06-19] MEDS: HYDROcodone/acetaminophen (*CRX) 7.5-325 MG TABLET 1 TAB PO (19:57)
[2021-06-19] MEDS: traZODone HCL 50 MG TABLET PO (19:57)
[2021-06-19 20:28] LABS: Glucose Point of Care 376 mg/dl (65-105)
[2021-06-20] VITALS (9 sets, daily range): BP systolic 136; BP diastolic 90; PULSE 82–143; RESP 16–20; TEMP 36.4; O2SAT 88–98
[2021-06-20] MEDS: ALBUTEROL SULFATE (*SP) INHALER 4 PUFF INHALATION ×3 (00:33→12:00)
[2021-06-20 06:07] LABS: Basophils Absolute Auto 0.04 K/mm3 (0.00-0.10); Basophils Percent Auto 0.2 % (0.0-1.0); Eosinophils Absolute Auto 0.01 K/mm3 (0.02-0.50); Eosinophils Percent Auto 0.1 % (1.0-6.0); Hematocrit 39.4 % (40.0-54.0); Hemoglobin 13.3 g/dL (14.0-18.0); Immature Granulocyte Absolute 0.45 K/mm3 (0.00-0.00); Immature Granulocyte Percent A 2.5 % (0.0-0.0); Immature Platelet Fraction Pct 4.7 % (1.0-7.0); Lymphocytes Absolute Auto 1.84 K/mm3 (1.10-4.50); Lymphocytes Percent Auto 10.3 % (18.0-42.0); Mean Corpuscular HGB Conc 33.8 g/dL (32.0-36.0); Mean Corpuscular Hemoglobin 31.9 pg (27.0-31.0); Mean Corpuscular Volume 94.5 fL (78.0-102.0); Mean Platelet Volume 11.2 fl (8.7-11.0); Monocytes Absolute Auto 0.98 K/mm3 (0.10-0.90); Monocytes Percent Auto 5.5 % (2.0-11.0); Neutrophils Absolute Auto 14.6 K/mm3 (1.7-7.2); Neutrophils Percent Auto 81.4 % (50.0-70.0); Platelet Count Result 596 K/mm3 (150-420); Red Blood Count 4.17 M/mm3 (4.70-6.10); Red Cell Distribution Width 12.2 % (11.6-14.4); White Blood Count 17.9 K/mm3 (4.8-10.8)
[2021-06-20 06:35] LABS: NT Pro B Type Natriuretic Pept 90 pg/mL (0-125)
[2021-06-20 06:38] LABS: Aspartate Amino Transferase 20 U/L (15-37)
[2021-06-20 07:39] LABS: Glucose Point of Care 266 mg/dl (65-105)
[2021-06-20 08:00] LABS: Anion Gap 9 mmol/L (8-16); Blood Urea Nitrogen 32 mg/dL (7-18); Calcium 8.8 mg/dL (8.5-10.1); Carbon Dioxide 28 mmol/L (21-32); Chloride 95 mmol/L (98-108); Estimated CRCL calculation 64 ml/min; Estimated Glomerular Filt Rate 48; Glucose 290 mg/dL (70-99); Osmolality Calculated 291 mOsm/kg (285-295); Sodium 132 mmol/L (136-145)
[2021-06-20] MEDS: INSULIN GLARGINE (*BKC) 100 UNITS/ML 15 UNITS SUB-Q (09:00)
[2021-06-20] MEDS: POTASSIUM CHLORIDE 10 MEQ TABLET PO (09:00)
[2021-06-20] MEDS: BUDESONIDE/FORMOTEROL (*SP) 160-4.5 MCG 6 GM INH 2 PUFF INHALATION (09:15)
[2021-06-20] MEDS: guaiFENesin 12 HR 600 MG TABCR 1200 MG PO (09:20)
[2021-06-20] MEDS: GABAPENTIN 300 MG CAPSULE PO ×2 (09:22→13:15)
[2021-06-20] MEDS: MAGNESIUM OXIDE 400 MG TABLET PO (09:22)
[2021-06-20] MEDS: METOPROLOL TARTRATE 50 MG TAB PO (09:22)
[2021-06-20] MEDS: dilTIAZem HCL CD 180 MG CAP.ER.24H 360 MG PO (09:23)
[2021-06-20] MEDS: DIGOXIN TAB 125 MCG TABLET PO (09:23)
[2021-06-20] MEDS: LOSARTAN POTASSIUM 50 MG TABLET PO (09:23)
[2021-06-20] MEDS: SODIUM CHLORIDE 1 GM TABLET PO (09:23)
[2021-06-20] MEDS: ATORVASTATIN 40 MG TABLET PO (09:23)
[2021-06-20] MEDS: LORATADINE 10 MG TABLET PO (09:23)
[2021-06-20] MEDS: BENZONATATE 100 MG CAPSULE 200 MG PO ×2 (09:24→13:14)
[2021-06-20] MEDS: SACCHAROMYCES BOULARDII 250 MG CAPSULE PO ×2 (09:25→13:16)
[2021-06-20] MEDS: FUROSEMIDE INJ 20 MG/2 ML VIAL IV PUSH (09:30)
[2021-06-20] MEDS: DEXAMETHASONE SOD PHOS INJ 4 MG/ML VIAL IV PUSH (09:31)
--- NOTE | 2021-06-20 09:54 | PM.DS ---
DS: Admitting Diagnosis Discharge Date 06/20/2021 Admitting Diagnosis COVID, A fib RVR, CHF DS: Discharge Diagnosis Discharge Diagnosis (1) Atrial fibrillation with RVR: Code(s): I48.91 - Unspecified atrial fibrillation Status: Acute Assessment and Plan: EKG A. fib with RVR heart rate of 153 Continue Cardizem until heart rate is below 100 Increased cardizem from 120mg to 240 mg daily Continue Xarelto Continue Cardizem and metoprolol 50 mg daily Continue telemetry Waiting for transfer to [facility] 06/14/2021 Transitioning to PO Cardizem, increased dose by 120 mg for a total PO dose of 360 mg, will revisit in the AM, as of 1617 hours HR controlled at 80 +/- but is still on 5 mg/hr Cardizem drip. 06/15/2021 Telemetry shows A Flutter at 1436 hours, Digoxin PO was started in addition to Cardizem as rate overnight increased back into the 140s at times and stayed over 100 most of the time. 06/17/2021 Rate better controlled with current Digoxin and Cardizem regimen. No CP 06/18/2021 Rather well controlled, will continue this regimen on DC 06/19/2021 Rate regular at 1650 hours at 64 bpm (2) Pneumonia due to COVID-19 virus: Code(s): U07.1 - COVID-19; J12.82 - Pneumonia due to coronavirus disease 2019 Status: Acute Assessment and Plan: COVID-positive, patient tested positive eight days ago azithromycin and Rocephin day 2/7 Continue olumiant remdesivir and dexamethasone Chest x-ray indicates pneumonia or edema Patient on 5 L nasal cannula 06/14/2021 Stable lung infiltrate and/or atelectasis per rad report. continue with regimen at this time. 06/15/2021 ABG with improvement as noted above, continue interventions listed 06/16/2021 ABG new WNL, respiratory status still guarded but slowly improving, continues on HFNC with slow wean current settings 40L/40% FiO2 with SpO2 >92% at rest. Repeat ABG in AM 06/17/2021 ABG improving SpO2 is 71.9, Pt does take his HFNC off at times causing uncertainty regarding accuracy of his ABG, Pt and I discussed importance of leaving his HFNC on so that lab work is accurate. He understood and stated he will keep his device on. Will recheck ABG in AM. 06/18/2021 NC 5 L/min w/ SpO2 >92%, will need a walk test in a couple days. 06/19/2021 Today was last day of Rocephin, Azithromycin finished about 2 days ago. (3) Acute hyponatremia: Code(s): E87.1 - Hypo-osmolality and hyponatremia Status: Acute Assessment and Plan: Improving Na 131>134 CMP in a.m. 06/14/2021 Na 133 continue to monitor 06/15/2021 134 continue to monitor 06/16/2021 135 06/17/2021 Stable will continue to monitor, Renal function improving Cr 1.35 06/18/2021 133 06/19/2021 132 added 1 gram Sodium Tabs daily (4) Acute hypokalemia: Code(s): E87.6 - Hypokalemia Status: Acute Assessment and Plan: Resolved Potassium3.7 >3.1 Will continue supplement 06/14/2021 WNL today 06/15/2021 K = 4 06/16/2021 3.8, last Magnesium 2.6 on 06/14/2021 06/17/2021 3.6 Stable 06/18/2021 3.6 06/19/2021 3.9 stable (5) Elevated troponin: Code(s): R77.8 - Other specified abnormalities of plasma proteins Status: Acute Assessment and Plan: Elevated [id number] Possibly secondary to A. fib with RVR versus COVID Will trend Continue telemetry 06/14/2021 Troponin 74.7, 68.5, 99.4, will obtain new in AM. No chest pain except with coughing and reproducible with sternal pressure applied, A fib is now rate controlled much better, rate was as high as 160s for short bursts. 06/15/2021 Troponin 50.8 06/16/2021 ... (6) Elevated d-dimer: Code(s): R79.89 - Other specified abnormal findings of blood chemistry Status: Acute Assessment and Plan: D-dimer2.82 VQ scan pending 06/14/2021 nondiagnostic (low or intermediate) probability for pulmonary embolism per rad report. Continue Xarelto 06/15/2021 ... 06/17/2021 Incorrectly documented on this d
--- NOTE | 2021-06-20 10:12 | HOMEO2EVAL ---
Evaluation was performed at [facility] Home Oxygen Evaluation RC: Home Oxygen (O2) Evaluation Start: 06/20/21 09:00 Freq: ONCE Status: Active Protocol: RPE Activity Type Activity Date Activity User E-Sign Co-Sign Detail Recorded Client Recorded Date Recorded By Document 06/20/21 09:15 SJB [id number] 06/20/21 10:09 SJB Document 06/20/21 09:18 SJB [id number] 06/20/21 10:09 SJB Document 06/20/21 09:22 SJB [id number] 06/20/21 10:09 SJB 06/20/21 06/20/21 06/20/21 09:15 09:18 09:22 Home O2 Evaluation Test Phase Resting Exercise Exercise Oxygen Delivery Room Air Room Air Nasal Cannula Oxygen Flow Rate (L/min) 1 Pulse Oximetry (90-100 %) 93 88 L 93 Pulse Rate (60-100 beats/min) 143 H 130 H 134 H Activity Tolerance Fair Fair Rating of Perceived Dyspnea (PD) +2 Mild, Some +2 Mild, Some Difficulty, Difficulty, Noticeable to Noticeable to the Observer the Observer Rate of Perceived Exertion (PE) 12 13 Somewhat Hard Ambulation Distance (feet) 20 80 Ambulation Distance (meters) 6.09 24.38 Home Oxygen Evaluation Comments Will start walk will add oxygen Patient walked with walker on at 1 liter per in room with room air nasal cannula. walker. Oxygen encouraged at [address]B. maintained Sp02 >92%. Treatment Charges O2 Evaluation - Inpatient
[2021-06-20] MEDS: BARICITINIB 2 MG TABLET PO (11:00)
[2021-06-20 12:00] LABS: Glucose Point of Care 344 mg/dl (65-105)
--- NOTE | 2021-06-20 15:45 | PC.NURSE ---
Discharge instructions reviewed with patient. [facility] delivered oxygen to room. Patient assisted to dress and transferred to wheelchair, taken off floor. Picked up by in private vehicle.
--- NOTE | 2021-06-21 13:56 | PC.NURSE ---
Pt states he received and understood his discharge instructions. Pt also states I had no problems .
== END 2021-06-20 15:45 | disposition home or self-care (01) | DRG 177 ==
LOC: CHSED 11:22 → CHS2ND 06-13 08:43
PROVIDERS: Nurse Practitioner; Nurse Practitioner Family; Admitting Provider Emergency Medicine; Emergency Provider Emergency Medicine; PCP Physician Assistant; Visit Provider Emergency Medicine
DX: U07.1 COVID-19 (principal); J12.82 Pneumonia due to coronavirus disease 2019; I48.20 Chronic atrial fibrillation, unspecified; N17.9 Acute kidney failure, unspecified; I50.9 Heart failure, unspecified; J44.9 Chronic obstructive pulmonary disease, unspecified; I11.0 Hypertensive heart disease with heart failure; E87.1 Hypo-osmolality and hyponatremia; J18.9 Pneumonia, unspecified organism; Z79.899 Other long term (current) drug therapy; E78.5 Hyperlipidemia, unspecified; E87.6 Hypokalemia; E11.9 Type 2 diabetes mellitus without complications; R77.8 Other specified abnormalities of plasma proteins; R79.89 Other specified abnormal findings of blood chemistry
CPT/HCPCS: 36415; 36600; 71045; 78580; 80048; 80053; 80307; 81001; 82565; 82805; 82948; 83735; 83880; 84132; 84450; 84460; 84484; 85025; 85055; 85380; 85610; 93005; 94618; 96365; 96366; 96367; 96368; 96375; 97110; 97162; 97165; 97530; 97535; 99285; A9270; A9540; C8929; C9803; J0360; J0456; J0696; J1100; J1815; J1940; J3475; J3480; J7030; U0003; U0005